=== PATIENT | female | born 1985 | race Caucasian/White ===

== ENCOUNTER 2022-01-22 17:26 | Emergency (ER) | payer OTHER, SELFPAY ==
[2022-01-22 17:28] VITALS: BP 106/4; PULSE 122; RESP 25; TEMP 37.9; O2SAT 97; BMI 39.3
[2022-01-22] MEDS: Ibuprofen 600 MG Tablet PO (17:48)
[2022-01-22] MEDS: Ondansetron ODT 4 MG Tablet 8 MG PO (17:49)
--- NOTE | 2022-01-22 17:54 | EX.ED.DYSGE1 ---
HPI History of Present Illness Chief Complaint: Fever Informant: patient Narrative Narrative: 2-day history fevers headache. Nausea and vomiting x5 today. No hematemesis. Very slight cough. No urinary symptoms. No current diarrhea. No loss of taste or smell. Denies any sick contacts. Denies any allergies. Denies myalgias. Hysterectomy in the past. Tylenol taken at 3 PM. PFSH PFSH Home Medications hydrocodone-acetaminophen 1 - 2 tab PO Q4H PRN PRN #12 tablet 11/27/16 [Rx Last Taken Unknown] naproxen 500 mg PO BID PRN #20 tab 11/27/16 [Rx Last Taken Unknown] ondansetron 4 mg PO Q6H PRN #10 tab 01/22/22 [Rx Last Taken Unknown] Allergy/AdvReac Type Severity Reaction Status Date / Time ciprofloxacin [From Cipro] Allergy Unknown Verified 01/22/22 17:28 Surgical History (Updated 01/22/22 @ 18:03 by Caron Carreno RN) Hx of appendectomy Hx of hysterectomy Social History Smoking Status: Never smoker ROS ROS ED Constitutional Constitutional ED: Reports fever(s); Denies chills or sweats Eyes Eyes: Denies change in vision ENT ENT ED: Denies dysphagia or sore throat Cardiovascular Cardiovascular: Denies chest pain, leg edema, palpitations or racing heartbeat Respiratory/Chest Respiratory/Chest: Denies cough, dyspnea or dyspnea on exertion Gastrointestinal Gastrointestinal: Reports nausea and vomiting; Denies abdominal pain or diarrhea Genitourinary Genitourinary ED: Denies dysuria, hematuria or urinary frequency Musculoskeletal Musculoskeletal: Denies back pain, extremity pain or neck pain Integumentary Denies rash or wounds Neurologic Neurologic: Reports headache(s); Denies paresthesias or weakness EXAM Physical Exam Const Vital Signs: 01/22/22 17:28 01/22/22 18:02 01/22/22 19:38 Temperature 100.2 F H 99.0 F Temperature Source Temporal Pulse Rate 122 H 79 Respiratory Rate 25 H 16 Respiratory Effort Normal Non-Labored Respiratory Pattern Normal Blood Pressure 106/4 L 103/70 Blood Pressure Mean 38 Pulse Ox 97 97 Oxygen Delivery Method Room Air Positive well nourished and well developed General Appearance ED: well developed and NAD HEENT Reports moist mucous membranes normocephalic and atraumatic Eyes PERRL, EOMs intact bilaterally and conjunctivae normal General Eye ED: Yes normal appearance of both eyes Neck no lymphadenopathy and supple Neck Narrative: No meningismus General: Negative for tenderness Chest Wall Chest: Negative for tenderness Resp normal respiratory effort and normal air movement Effort and Inspection: symmetric chest movement; Negative for respiratory distress Cardio regular rate, regular rhythm and no murmurs Rate: tachycardic Peripheral Pulses: pulses 2+ throughout GI normal to inspection, nondistended, normoactive bowel sounds and non-tender Palpation: Negative for guarding or rebound tenderness present Back/Spine no CVA tenderness and no thoracic nor lumbar tenderness Extremity normal to inspection General Extremety ED: Negative for edema or tenderness General Extremity: Negative for edema Neuro oriented x3 and no sensory deficits noted Sensorium / Orientation: awake and alert Skin no rashes or lesions noted and no wounds MDM MDM MDM Narrative Medical decision making narrative: Patient nontoxic tachycardic on arrival elevated temperature of 100.2. No meningismus findings. Ibuprofen and Zofran was given. Monitor improvement of symptoms tolerating oral fluids. Temperature and heart rate improved. No cough or dyspnea or concerns for pneumonia or PE. Flu and COVID are negative. Discussed viral syndrome. Follow-up give as an outpatient. Return precautions. Discharge Plan Triage Chief Complaint: Fever ED Provider: Juan Flower Dx/Rx/DC Orders Clinical Impression: Fever, Acute viral syndrome, Nausea & vomiting, Headache Instructions: Self-Care for Headaches, ED Fever Control (Adult), ED Viral Syndrome (Adult), ED Vomiting (Adult) Prescriptions: New ondansetron 4 mg tablet,disintegrating 4 mg PO Q6H PRN (Reason: nausea and vomiting) Qty: 10 RF: 0 No Action hydrocodone-acetaminophen 1 TABLET tablet 1 - 2 tab PO Q4H PRN PRN (Reason: Pain) Qty: 12 RF: 0 naproxen 500 MG tablet 500 mg PO BID PRN Qty: 20 RF: 0 Primary Care Provider: Care Physician,No Primary Referrals: Morena Batista [NON-STAFF] - 3-5 Days if not improving Care Physician,No Primary [Primary Care Provider] - Activity Restrictions/Additional Instructions: COVID and flu negative. Continue oral fluids. Follow-up as an outpatient. Return if any worsening symptoms. Disposition Disposition: Home, Self Care Discharge Date/Time: 01/22/22 19:41
[2022-01-22 19:38] VITALS: BP 103/70; PULSE 79; RESP 16; TEMP 37.2; O2SAT 97
== END 2022-01-22 19:41 | disposition home or self-care (01) ==
PROVIDERS: Emergency Provider Emergency Medicine; Visit Provider Emergency Medicine
DX: B34.9 Viral infection, unspecified (principal); R11.2 Nausea with vomiting, unspecified; R50.9 Fever, unspecified; R51.9 Headache, unspecified
CPT/HCPCS: 87428; 99283

== ENCOUNTER 2023-12-17 19:30 | Inpatient (IN) | payer OTHER, SELFPAY ==
[2023-12-17 19:31] VITALS: BP 138/74; PULSE 103; RESP 20; TEMP 36.6; O2SAT 96; BMI 38.7
--- NOTE | 2023-12-17 19:47 | EX.ED.DYSGE1 ---
HPI <KAVITA Monreal - Last Filed: 12/17/23 22:12> History of Present Illness Chief Complaint: Chest Other Narrative Narrative: 38-year-old female developed pain in her right flank and side over the last few days. It worsened to half an hour ago while she was bowling but it seemed worse with movement so she stopped the activity. The pain today is more severe. She has no associated fever, chills, nausea, vomiting, chest pain, shortness of breath, or bladder or bowel changes. No history of kidney stones. She has had an appendectomy and hysterectomy. She does not smoke or drink alcohol. She is not currently on any medications. She recently had her enlarged thyroid removed and is pending biopsy. PFSH <KAVITA Monreal - Last Filed: 12/17/23 22:12> PFS Medical History Obesity Thyroid disease Home Medications hydrocodone-acetaminophen 5-325mg 5mg-325mg 1 tab PO Q4H PRN PRN pain 12/17/23 [History Last Taken Unknown] sulfamethoxazole 800 mg-trimethoprim 160 mg tablet (Bactrim DS) 1 tab PO BID 7 days #14 tabs 12/20/23 [Rx Last Taken Unknown] Allergy/AdvReac Type Severity Reaction Status Date / Time ciprofloxacin [From Cipro] Allergy Intermediate Hives Verified 12/20/23 11:44 Family History (Updated 12/17/23 @ 22:[address] Sandi Norman MD) Mother No problems noted. Father No problems noted. Surgical History H/O thyroidectomy History of surgery on lower extremity Hx of appendectomy Hx of hysterectomy Previous section Social History (Updated 12/17/23 @ 22:[address] Sandi Norman MD) household members: children Smoking Status: Never smoker alcohol intake: never substance use type: does not use ROS <KAVITA Monreal - Last Filed: 12/17/23 22:12> ROS ED ROS Narrative Constitutional: Negative for fever, chills, malaise. CVS: Negative for chest pain, syncope. Respiratory: Negative for shortness of breath, cough. GI: Negative for abdominal pain, nausea, vomiting, diarrhea, constipation, melena, hematochezia. : Negative for dysuria, hematuria or frequency. EXAM <KAVITA Monreal - Last Filed: 12/17/23 22:12> Physical Exam Narrative Exam Narrative: CONST: Patient sitting in no acute distress. EYES: Normal inspection. NECK: Normal inspection. RESP: No respiratory distress, CTAB. CVS: Regular rate and rhythm, no murmur, no gallop. ABD: Soft with RUQ tenderness, no guarding or rebound, nondistended, no hepatosplenomegaly. Back: Normal inspection, right CVA tenderness. SKIN: Color normal, no rash, warm, dry, intact. EXTREMITIES: Normal appearance, no pedal edema. NEURO: Alert and answering questions appropriately. PSYCH: Normal affect. Const Vital Signs: 12/17/23 19:31 12/17/23 19:56 12/17/23 22:00 Temperature 98 F 96.9 F L Temperature Source Temporal Temporal Pulse Rate 103 H 85 Respiratory Rate 20 H 16 Respiratory Effort Normal Non-Labored Blood Pressure 138/74 H 99/57 L Blood Pressure Mean 95 71 Pulse Ox 96 93 Oxygen Delivery Method Room Air Room Air 12/17/23 22:03 12/17/23 22:04 Temperature 97.9 F 97.9 F Temperature Source Oral Pulse Rate 89 90 Respiratory Rate 16 19 H Respiratory Effort Blood Pressure 99/57 L 99/57 L Blood Pressure Mean 71 71 Pulse Ox 93 93 Oxygen Delivery Method Room Air <Dr. Dick Millard DO - Last Filed: 12/22/23 10:12> Physical Exam Const Vital Signs: 12/17/23 19:31 12/17/23 19:56 12/17/23 22:00 Temperature 98 F 96.9 F L Temperature Source Temporal Temporal Pulse Rate 103 H 85 Respiratory Rate 20 H 16 Respiratory Effort Normal Non-Labored Blood Pressure 138/74 H 99/57 L Blood Pressure Mean 95 71 Pulse Ox 96 93 Oxygen Delivery Method Room Air Room Air 12/17/23 22:03 12/17/23 22:04 Temperature 97.9 F 97.9 F Temperature Source Oral Pulse Rate 89 90 Respiratory Rate 16 19 H Respiratory Effort Blood Pressure 99/57 L 99/57 L Blood Pressure Mean 71 71 Pulse Ox 93 93 Oxygen Delivery Method Room Air MDM <KAVITA Monreal - Last Filed: 12/17/23 22:12> MDM MDM Narrative Medical decision making narrative: Differential includes kidney stone or pyelonephritis, gallbladder etiology, or musculoskeletal pain. Consults: Hospitalist, urology Patient has right flank and upper abdominal pain present over the last few days but worsened today. She appears well and nontoxic. Heart rate is 103 with otherwise normal vital signs. She has a normal cardiopulmonary exam. She has reproducible pain in the right flank and RUQ with no peritoneal signs. Labs show normal white count of 10.2 and mild anemia at 10.3. She has normal electrolytes and renal function. UA is positive for UTI. Based on this I ordered a CT scan of the abdomen/pelvis which shows a 9 cm multiloculated renal parenchymal mass with surrounding hazy fat stranding and streaky fluid. This may be renal abscess versus malignant process. I discussed with Dr. Haile who reviewed the images. He notes there is a large stone in the renal pelvis which he believes is obstructive causing hydronephrosis/pyelonephritis. He agreed with IV Rocephin and recommended admission and n.p.o. for stent placement this weekend. Case was discussed with the hospitalist for admission. Lab Data Attestation: I reviewed the patient's lab results. Labs: Laboratory Results - last 24 hr 12/17/23 12/17/23 20:00 20:20 WBC 10.2 RBC 3.77 L Hgb 10.3 L Hct 33.2 L MCV 88.1 MCH 27.3 MCHC 31.0 L RDW Std Deviation 46.1 H RDW Coeff of Paige 14.4 Plt Count 495 H MPV 9.2 Immature Gran % (Auto) 0.400 Neut % (Auto) 73.6 H Lymph % (Auto) 16.5 L [place] % (Auto) 7.8 Eos % (Auto) 1.2 Baso % (Auto) 0.5 Absolute Neuts (auto) 7.5 Absolute Lymphs (auto) 1.69 Nucleated RBC % 0 Sodium 137 Potassium 3.9 Chloride 108 H Carbon Dioxide 26.0 Anion Gap 3 L BUN 12 Creatinine 0.90 Estim Creat Clear Calc 100.54 Est GFR (MDRD) Af Amer 91 Est GFR (MDRD) Non-Af 75 BUN/Creatinine Ratio 13.3 Glucose 119 H Calcium 8.6 Total Bilirubin 0.30 AST 43 H ALT 50 Alkaline Phosphatase 86 Total Protein 7.2 Albumin 2.8 L Globulin 4.4 H Albumin/Globulin Ratio 0.6 L Lipase 39 Urine Color Yellow Urine Clarity Clear Urine pH 7.0 Ur Specific [place] 1.015 Urine Protein 30 H Urine Glucose (UA) Normal Urine Ketones 5 H Urine Occult Blood 50 H Urine Nitrite Positive H Urine Bilirubin Negative Urine Urobilinogen 8 H Ur Leukocyte Esterase 100 H Urine RBC 0-5 SEEN Urine WBC 50-100 SEEN Ur Squamous Epith Cells 0-5 SEEN Urine Bacteria 2+ Urine Mucus 0 SEEN Radiography Diagnostic Testing: Clinical Impression(s) from Imaging Studies Abdomen/Pelvis CT 12/17/23 20:47 IMPRESSION: Large 9 cm hypoattenuating right multiloculated renal parenchymal mass with surrounding hazy fat stranding and streaky fluid, which may represent renal abscess versus possible malignant process. Fatty liver. Electronically Signed: Jose Funk MD at 21:45 EDT , <Dr. Dick Millard, DO - Last Filed: 12/22/23 10:12> [facility] MDM Narrative Medical decision making narrative: Differential includes kidney stone or pyelonephritis, gallbladder etiology, or musculoskeletal pain. Consults: Hospitalist, urology Patient has right flank and upper abdominal pain present over the last few days but worsened today. She appears well and nontoxic. Heart rate is 103 with otherwise normal vital signs. She has a normal cardiopulmonary exam. She has reproducible pain in the right flank and RUQ with no peritoneal signs. Labs show normal white count of 10.2 and mild anemia at 10.3. She has normal electrolytes and renal function. UA is positive for UTI. Based on this I ordered a CT scan of the abdomen/pelvis which shows a 9 cm multiloculated renal parenchymal mass with surrounding hazy fat stranding and streaky fluid. This may be renal abscess versus malignant process. I discussed with Dr. Haile who reviewed the images. He notes there is a large stone in the renal pelvis which he believes is obstructive causing hydronephrosis/pyelonephritis. He agreed with IV Rocephin and recommended admission and n.p.o. for stent placement this weekend. Case was discussed with the hospitalist for admission. ED attending note: I evaluated the patient in conjunction with the RASHARD. I agree with his/her statements and above findings. I have personally performed a face to face assessment of the patient and have reviewed the RASHARD Note. I performed a substantive portion of the visit including all aspects of the following. I personally saw the patient performed chart review, physical exam, reviewed labs, imaging (if obtained), and formulated a treatment and management plan. This note was generated with [employer] dictation software. It may contain incorrect words, spelling, and punctuation that were not noted in review of the chart prior to signing. Lab Data Labs: Laboratory Results - last 24 hr 12/17/23 12/17/23 20:00 20:20 WBC 10.2 RBC 3.77 L Hgb 10.3 L Hct 33.2 L MCV 88.1 MCH 27.3 MCHC 31.0 L RDW Std Deviation 46.1 H RDW Coeff of Paige 14.4 Plt Count 495 H MPV 9.2 Immature Gran % (Auto) 0.400 Neut % (Auto) 73.6 H Lymph % (Auto) 16.5 L [place] % (Auto) 7.8 Eos % (Auto) 1.2 Baso % (Auto) 0.5 Absolute Neuts (auto) 7.5 Absolute Lymphs (auto) 1.69 Nucleated RBC % 0 Sodium 137 Potassium 3.9 Chloride 108 H Carbon Dioxide 26.0 Anion Gap 3 L BUN 12 Creatinine 0.90 Estim Creat Clear Calc 100.54 Est GFR (MDRD) Af Amer 91 Est GFR (MDRD) Non-Af 75 BUN/Creatinine Ratio 13.3 Glucose 119 H Calcium 8.6 Total Bilirubin 0.30 AST 43 H ALT 50 Alkaline Phosphatase 86 Total Protein 7.2 Albumin 2.8 L Globulin 4.4 H Albumin/Globulin Ratio 0.6 L Lipase 39 Urine Color Yellow Urine Clarity Clear Urine pH 7.0 Ur Specific [place] 1.015 Urine Protein 30 H Urine Glucose (UA) Normal Urine Ketones 5 H Urine Occult Blood 50 H Urine Nitrite Positive H Urine Bilirubin Negative Urine Urobilinogen 8 H Ur Leukocyte Esterase 100 H Urine RBC 0-5 SEEN Urine WBC 50-100 SEEN Ur Squamous Epith Cells 0-5 SEEN Urine Bacteria 2+ Urine Mucus 0 SEEN Radiography Diagnostic Testing: Clinical Impression(s) from Imaging Studies Abdomen/Pelvis CT 12/17/23 20:47 IMPRESSION: Large 9 cm hypoattenuating right multiloculated renal parenchymal mass with surrounding hazy fat stranding and streaky fluid, which may represent renal abscess versus possible malignant process. Fatty liver. Electronically Signed: Jose Funk MD at 21:45 EDT , Discharge Plan Dx/Rx/DC Orders Clinical Impression: Pyelonephritis of right kidney Disposition Disposition: Acute Care Hospital [facility] Discharge Date/Time: 12/17/23 22:46
[2023-12-17 20:06] LABS: Mucous, Urine 0 SEEN /hpf (<or=2+)
[2023-12-17 20:16] LABS: Color, Urine Yellow (Yellow); Glucose, Dipstick Normal (Normal); Ketone-Dipstick 5 mg/dl (Negative); Leukocyte Esterase-Dipstick 100 /ul (Negative); Nitrite-Dipstick Positive (Negative); Occult Blood-Urine 50 /ul (Negative); Protein-Dipstick 30 mg/dl (Negative); Specific Gravity, Urine 1.015 (1.002-1.030); Urine Bilirubin Dipstick Negative (Negative); Urine Clarity Clear (Clear); Urine Urobilinogen 8 mg/dl (Normal)
[2023-12-17] MEDS: Ketorolac 15 MG/ML Vial IV (20:26)
[2023-12-17 20:34] LABS: Absolute Lymphocyte Count 1.69 X10^3/uL (0.83-4.51); Absolute Neutrophil Count 7.5 X10^3/uL (2.0-7.7); Basophil# 0.05 X10^3/uL; Basophil% 0.5 % (0-1); Eosinophil# 0.12 X10^3/uL; Eosinophils% 1.2 % (0-5); Hematocrit 33.2 % (37-47); Hemoglobin 10.3 g/dL (12.0-15.0); Lymphocyte # 1.69 X10^3/ul (0.83-4.51); Lymphocyte % 16.5 % (19-41); Mean Corpuscular Hgb 27.3 pg (27.0-32.0); Mean Corpuscular Volume 88.1 fL (81-99); Mean Platelet Vol. 9.2 fl (6.2-12.0); Monocyte% 7.8 % (0-10); NRBC Flagged by Analyzer 0 % (0-5); Neutrophil # 7.53 X10^3/uL (2.7-7.7); Neutrophil % 73.6 % (47-70); Platelet Count 495 K/mm3 (150-450); RBC Distribution Width CV 14.4 % (11.6-14.6); RBC Distribution Width SD 46.1 fl (35.1-43.9); Red Blood Count 3.77 M/mm3 (4.2-5.4); White Blood Count 10.2 K/mm3 (4.4-11.0)
[2023-12-17 20:43] LABS: Squamous Epithelial Cells - UA 0-5 SEEN /hpf (5-10); White Blood Cells 50-100 SEEN /hpf (0-5)
[2023-12-17 20:44] LABS: Bacteria 2+ /hpf (None Seen); Red Blood Cells-Urine 0-5 SEEN /hpf (0-5)
--- NOTE | 2023-12-17 20:47 | CT_ITS ---
INDICATION: RIGHT FLANK PAIN. COMPARISON: None. A radiation dose optimization technique was used for this scan. RADIATION DOSAGE (If Supplied By Facility): CTDIvol/DLP = ( 20.20 ) / ( 1125.72 ) mGy/mGycm FINDINGS: Noncontrast serial CT axial images through the abdomen and pelvis with coronal and sagittal reformatted series. PANCREAS: No peripancreatic fat stranding. BOWEL/MESENTERY: No dilated bowel loops. No significant free fluid. No free air. APPENDIX: Appendix is not definitely identified, however, there are no significant right lower quadrant inflammatory fat changes or focal fluid collection to suggest acute appendicitis. UTERUS/ADNEXA: Bilateral adnexal surgical clips. GALLBLADDER: No pericholecystic fat stranding. LIVER/STOMACH: Fatty liver. URINARY COLLECTING SYSTEM/ KIDNEYS: There is small right-sided nephrolith in place, however, no significant hydroureteronephrosis is present. No obstructing ureteral calculus. There is a large hypoattenuating right interpolar multiloculated 9 cm renal parenchymal mass with surrounding hazy fat stranding and streaky fluid. LUNG BASES: Thin streaky bibasilar atelectasis versus scarring.. BONES: Unremarkable for age. CT/Abdomen/Pelvis without Cont IMPRESSION: Large 9 cm hypoattenuating right multiloculated renal parenchymal mass with surrounding hazy fat stranding and streaky fluid, which may represent renal abscess versus possible malignant process. Fatty liver. Electronically Signed: Jose Funk MD at 21:45 EDT ,
[2023-12-17] MEDS: Morphine 4 MG/ML Syringe IV (20:53)
[2023-12-17] MEDS: Ondansetron 4 MG/2 ML Vial IV (20:53)
[2023-12-17 20:55] LABS: ALB/GLOB Ratio 0.6 RATIO (0.9-2.4); AST(SGOT) 43 U/L (15-37); Alanine Aminotransfer ALT/SGPT 50 U/L (13-56); Albumin, Serum 2.8 g/dL (3.2-5.0); Alkaline Phosphatase 86 U/L (45-117); Anion Gap 3 (5-15); BUN 12 mg/dL (7-18); BUN/Creat Ratio 13.3 RATIO (10-20); Calcium,Total 8.6 mg/dL (8.5-10.1); Chloride 108 mmol/L (98-107); EST Glomerular Filtration Rate 75 mL/min (>60); Est Glom Filt Rate - Afr Amer 91 mL/min (>60); Estimated Creatinine Clearance 100.54 ml/min; Globulin 4.4 g/dL (2.2-4.2); Glucose 119 mg/dL (74-106); Lipase 39 U/L (13-75); Potassium 3.9 mmol/L (3.5-5.1); Protein, Total 7.2 g/dL (6.4-8.2); Sodium Level 137 mmol/L (136-145)
[2023-12-17] MEDS: Ceftriaxone 1 GM/50 ML BAG IV (21:26)
[2023-12-17 22:00] VITALS: BP 99/57; PULSE 85; RESP 16; TEMP 36.1; O2SAT 93
[2023-12-17 22:03] VITALS: BP 99/57; PULSE 89; RESP 16; TEMP 36.6; O2SAT 93
[2023-12-17 22:04] VITALS: BP 99/57; PULSE 90; RESP 19; TEMP 36.6; O2SAT 93
--- NOTE | 2023-12-17 22:06 | CON.PCM.UR_ITS ---
HPI Consult Data Date of Consult: 12/17/23 HPI Narrative Reason for Consultation: stone HPI Narrative: FRANNY REID, is a 38 F who presents e right flank pain ct scan shows severe hydro and a stone in the renal pekvis causing severe hydro likly infrcted kidney, pt eill e admitted npo at midnight and eill place stent in am. [facility] Medical History (Updated 12/17/23 @ 22:[address] Sandi Norman MD) Obesity Thyroid disease Allergy/AdvReac Type Severity Reaction Status Date / Time ciprofloxacin [From Cipro] Allergy Unknown Verified 12/17/23 19:32 Surgical History (Updated 12/17/23 @ 22:[address] Sandi Norman MD) H/O thyroidectomy History of surgery on lower extremity Hx of appendectomy Hx of hysterectomy Previous section Social History (Updated 12/17/23 @ 22:[address] Sandi Norman MD) household members: none Smoking Status: Never smoker alcohol intake: never substance use type: does not use Lab / Micro Data 12/17/23 20:20 12/17/23 20:20 Labs: Laboratory Results - last 24 hr 12/17/23 20:00: Urine Color Yellow, Urine Clarity Clear, Urine pH 7.0, Ur Specific [place] 1.015, Urine Protein 30 H, Urine Glucose (UA) Normal, Urine Ketones 5 H, Urine Occult Blood 50 H, Urine Nitrite Positive H, Urine Bilirubin Negative, Urine Urobilinogen 8 H, Ur Leukocyte Esterase 100 H, Urine RBC 0-5 SEEN, Urine WBC 50-100 SEEN, Ur Squamous Epith Cells 0-5 SEEN, Urine Bacteria 2+, Urine Mucus 0 SEEN 12/17/23 20:20: WBC 10.2, RBC 3.77 L, Hgb 10.3 L, Hct 33.2 L, MCV 88.1, MCH 27.3, MCHC 31.0 L, RDW Std Deviation 46.1 H, RDW Coeff of Paige 14.4, Plt Count 495 H, MPV 9.2, Immature Gran % (Auto) 0.400, Neut % (Auto) 73.6 H, Lymph % (Auto) 16.5 L, [place] % (Auto) 7.8, Eos % (Auto) 1.2, Baso % (Auto) 0.5, Absolute Neuts (auto) 7.5, Absolute Lymphs (auto) 1.69, Nucleated RBC % 0, Sodium 137, Potassium 3.9, Chloride 108 H, Carbon Dioxide 26.0, Anion Gap 3 L, BUN 12, Creatinine 0.90, Estim Creat Clear Calc 100.54, Est GFR (MDRD) Af Amer 91, Est GFR (MDRD) Non-Af 75, BUN/Creatinine Ratio 13.3, Glucose 119 H, Calcium 8.6, Total Bilirubin 0.30, AST 43 H, ALT 50, Alkaline Phosphatase 86, Total Protein 7.2, Albumin 2.8 L, Globulin 4.4 H, Albumin/Globulin Ratio 0.6 L, Lipase 39 Imaging Radiology Impression Abdomen/Pelvis CT 12/17/23 20:47 IMPRESSION: Large 9 cm hypoattenuating right multiloculated renal parenchymal mass with surrounding hazy fat stranding and streaky fluid, which may represent renal abscess versus possible malignant process. Fatty liver. Electronically Signed: Jose Funk MD at 21:45 EDT ,
--- NOTE | 2023-12-17 22:12 | HP.PCM.HOS_ITS ---
HPI - General General Date of Admission: 12/17/23 Date of Service: 12/17/23 Chief Complaint: Right flank pain. HPI Narrative The patient is a 38 y/o F w/ PMHx: Obesity, recent Thyroid Bx for enlarged thyroid awaiting result otherwise healthy who presents to the [facility] ED on 12/17/23 with history of worsening right flank discomfort over the last several days however approximately half an hour prior to ED arrival while attempting to be active specifically [place] had worsening discomfort reporting it now is severe with no associated fever, chills, nausea, emesis, abdominal pain or dysuria/frequency/urinary type symptoms but given ongoing prompted ED evaluation. She reports the pain is dull aching, throbbing and stabbing rating it currently 9 out of 10 in severity. She denies ever having anything like this occur before. Workup in the ED included T98, heart rate 103, BP 130/74, respiratory rate 20, 96% on room air, CBC with WBC 10.2, hemoglobin 10.3, platelet 495 without marked shift, CMP with chloride 108, glucose 119, AST 43 otherwise hepatic profile not marked appearing, lipase 39, urinalysis with specific remedy 1.015, ketone 5, occult blood 50, positive nitrite, leukocyte Estrace 100, urine WBCs 50-100 with 2+ urine bacteria, urine culture pending per ED, CT abdomen and pelvis with large 9 cm hypoattenuating right multiloculated renal parenchymal mass with surrounding hazy fat stranding and streaky fluid possibly mechanical service representative of a renal abscess versus possibly malignant process. ED discussed case with urology who felt that the findings were secondary to a large stone in the renal pelvis concerning for obstructive process causing hydronephrosis and also concern that certainly it was a purulent process with plan to stent placement and evaluation in a.m. in the ED patient administered Zofran 4 mg IV x 1, morphine 4 mg IV x 1, Toradol 50 mg IV x 1 and Rocephin 1 g IV x 1. [facility] Medical History Obesity Thyroid disease Home Medications hydrocodone-acetaminophen 5-325mg 5mg-325mg 1 tab PO Q4H PRN PRN pain 12/17/23 [History Last Taken Unknown] Allergy/AdvReac Type Severity Reaction Status Date / Time ciprofloxacin [From Cipro] Allergy Unknown Verified 12/17/23 19:32 Family History (Updated 12/17/23 @ 22:[address] Sandi Norman MD) Mother No problems noted. Father No problems noted. Surgical History H/O thyroidectomy History of surgery on lower extremity Hx of appendectomy Hx of hysterectomy Previous section Social History (Updated 12/17/23 @ 22:[address] Sandi Norman MD) household members: children Smoking Status: Never smoker alcohol intake: never substance use type: does not use ROS ROS Narrative Admission Review of Systems: CONSTITUTIONAL: No weight loss, fever, chills, + weakness or fatigue. HEENT: Eyes: No visual loss, blurred vision, double vision or yellow sclerae. Ears, Nose, Throat: No hearing loss, sneezing, congestion, runny nose or sore throat. SKIN: No rash or itching, lesions, wounds. CARDIOVASCULAR: No chest pain, chest pressure or chest discomfort, palpitations, edema, orthopnea, syncopal events. RESPIRATORY: No shortness of breath, cough or sputum, wheezing, hemoptysis. GASTROINTESTINAL: No anorexia, nausea, vomiting or diarrhea, abdominal pain, melena, BRBPR. GENITOURINARY: + Right flank discomfort. No dysuria, frequency, urgency or retention. NEUROLOGICAL: No headache, dizziness, syncope, paralysis, ataxia, numbness or tingling in the extremities, focal weakness, change in bowel or bladder control, seizure. MUSCULOSKELETAL: + muscle, back pain, joint pain or stiffness. HEMATOLOGIC: + Anemia of unclear chronicity. No specific history of easy bleeding or bruising. LYMPHATICS: No enlarged nodes. No history of splenectomy. PSYCHIATRIC: No history of depression or anxiety. ENDOCRINOLOGIC: No reports of sweating, cold or heat intolerance. No polyuria or polydipsia. ALLERGIES: No history of asthma, hives, eczema or rhinitis. Vital Signs Vital Signs Vital Signs: 12/17/23 19:31 12/17/23 19:56 12/17/23 22:00 Temperature 98 F 96.9 F L Temperature Source Temporal Temporal Pulse Rate 103 H 85 Respiratory Rate 20 H 16 Respiratory Effort Normal Non-Labored Blood Pressure 138/74 H 99/57 L Blood Pressure Mean 95 71 Pulse Ox 96 93 Oxygen Delivery Method Room Air Room Air 04/05/24 22:03 12/17/23 22:04 Temperature 97.9 F 97.9 F Temperature Source Oral Pulse Rate 89 90 Respiratory Rate 16 19 H Respiratory Effort Blood Pressure 99/57 L 99/57 L Blood Pressure Mean 71 71 Pulse Ox 93 93 Oxygen Delivery Method Room Air Weight Weight: 225 lb 4.999 oz Body Mass Index (BMI) 38.7 Physical Exam Narrative Physical Examination: General: Awake, alert, oriented x 3 and cooperative, initially typing on her phone in the ED bed, fatigued, reporting pain 9 out of 10 but currently does not appear in any distress. Skin: Normal color, normal turgor, no icterus, no cyanosis. HEENT: AT/NC, EOMI, PERRLA, moderately dry MM, no carotid bruits or JVD noted. Lungs: CTA bilaterally, moderate effort, mild decrease BL bases, no rales, ronchi or wheezing. Heart: Mildly tachycardic with regular rhythm; no gallop, rub audible. Abdomen: Soft, abdomen is nontender to palpation, obese, no marked distention although habitus makes evaluation difficult, mildly hyperactive BS, no apprec iated HSM, + discomfort to palpation/tapping of the right flank. Extremities: No cyanosis, clubbing, or edema. Neurological: Patient awake, alert, oriented as noted, cognitive function intact; pupils equally reactive to light and accommodation, cranial nerves II- XII grossly normal, moving all 4 extremities, no focal deficits, strength moderately globally decreased secondary to acute presentation complaints Psychiatric: Affect appears fatigued, no acute evidence of depressive or anxiety feelings. Results Lab / Micro Data 12/17/23 20:20 12/17/23 20:20 Labs: Laboratory Results - last 24 hr 12/17/23 20:00: Urine Color Yellow, Urine Clarity Clear, Urine pH 7.0, Ur Specific [place] 1.015, Urine Protein 30 H, Urine Glucose (UA) Normal, Urine Ketones 5 H, Urine Occult Blood 50 H, Urine Nitrite Positive H, Urine Bilirubin Negative, Urine Urobilinogen 8 H, Ur Leukocyte Esterase 100 H, Urine RBC 0-5 SEEN, Urine WBC 50-100 SEEN, Ur Squamous Epith Cells 0-5 SEEN, Urine Bacteria 2+, Urine Mucus 0 SEEN 12/17/23 20:20: WBC 10.2, RBC 3.77 L, Hgb 10.3 L, Hct 33.2 L, MCV 88.1, MCH 27.3, MCHC 31.0 L, RDW Std Deviation 46.1 H, RDW Coeff of Paige 14.4, Plt Count 495 H, MPV 9.2, Immature Gran % (Auto) 0.400, Neut % (Auto) 73.6 H, Lymph % (Auto) 16.5 L, [place] % (Auto) 7.8, Eos % (Auto) 1.2, Baso % (Auto) 0.5, Absolute Neuts (auto) 7.5, Absolute Lymphs (auto) 1.69, Nucleated RBC % 0, Sodium 137, Potassium 3.9, Chloride 108 H, Carbon Dioxide 26.0, Anion Gap 3 L, BUN 12, Creatinine 0.90, Estim Creat Clear Calc 100.54, Est GFR (MDRD) Af Amer 91, Est GFR (MDRD) Non-Af 75, BUN/Creatinine Ratio 13.3, Glucose 119 H, Calcium 8.6, Total Bilirubin 0.30, AST 43 H, ALT 50, Alkaline Phosphatase 86, Total Protein 7.2, Albumin 2.8 L, Globulin 4.4 H, Albumin/Globulin Ratio 0.6 L, Lipase 39 Imaging Radiology Impression Abdomen/Pelvis CT 12/17/23 20:47 IMPRESSION: Large 9 cm hypoattenuating right multiloculated renal parenchymal mass with surrounding hazy fat stranding and streaky fluid, which may represent renal abscess versus possible malignant process. Fatty liver. Electronically Signed: Jose Funk MD at 21:45 EDT , Assessment & Plan Assessment/Plan (1) Pyelonephritis of right kidney: PLAN: Plan The patient is a 38 y/o F w/ PMHx: Obesity, recent Thyroid Bx for enlarged thyroid awaiting result otherwise healthy who presents to the [facility] ED on 12/17/23 with history of worsening right flank discomfort over the last several days however approximately half an hour prior to ED arrival while attempting to be active specifically bowling had worsening discomfort reporting it now is severe with no associated fever, chills, nausea, emesis, abdominal pain or d ysuria/frequency/urinary type symptoms but given ongoing prompted ED evaluation. #1. Complicated Acute Pyelonephritis with large 9 cm hypoattenuating right multiloculated renal parenchymal mass with surrounding hazy fat stranding and streaky fluid possibly abscess with concern for obstructive calculi in the renal pelvis and associated hydronephrosis per Urology assessment: Will admit to MS, UA upon ED evaluation remarkable, pending UCx, maintain n.p.o. status after midnight for operative intervention planned, continue urology consultation initiated per ED, continue IVFs, monitor I/Os, continue IV Rocephin per urology request w/ transition as able pending sensitivities and speciation. #2. Normocytic anemia, unclear chronicity: Admission hemoglobin 10.3, MCV 88.1, last noted labs previous to this in 2017 with hemoglobin 12.5 at that time, will continue to trend CBC to help further elucidate chronicity. #3. Obesity: Weight loss and lifestyle changes encouraged. #4. Enlarged thyroid: Status post recent thyroid right-sided resection/biopsy, awaiting results, encourage continued outpatient follow-up as previously arranged. #5. DVT prophylaxis: SCDs pending urology assessment in case of any type of intervention needs. Charges/Coding Visit Charges Inpatient E&M: 11222 Init Hosp L2
[2023-12-17 23:04] VITALS: BMI 37.4
[2023-12-17 23:08] VITALS: BP 106/59; PULSE 75; RESP 17; TEMP 36.6; O2SAT 95
[2023-12-17] MEDS: 0.9% Normal Saline (1000mL) 1,000 ML 100 ML IV (23:42)
[2023-12-17] MEDS: Morphine 2 MG/ML Syringe IV (23:48)
[2023-12-18] VITALS (9 sets, daily range): BP systolic 107–133; BP diastolic 54–88; PULSE 65–89; RESP 14–18; TEMP 35.9–37; O2SAT 94–100; BMI 37.5; BMI 37.4
[2023-12-18 05:51] LABS: Absolute Lymphocyte Count 1.33 X10^3/uL (0.83-4.51); Absolute Neutrophil Count 4.8 X10^3/uL (2.0-7.7); Basophil# 0.04 X10^3/uL; Basophil% 0.6 % (0-1); Eosinophil# 0.14 X10^3/uL; Hemoglobin 10.4 g/dL (12.0-15.0); Lymphocyte # 1.33 X10^3/ul (0.83-4.51); Lymphocyte % 19.2 % (19-41); Mean Corp Hgb Conc 31.5 g/dL (32-36); Mean Corpuscular Hgb 28.6 pg (27.0-32.0); Mean Corpuscular Volume 90.7 fL (81-99); Mean Platelet Vol. 9.2 fl (6.2-12.0); Monocyte% 8.6 % (0-10); NRBC Flagged by Analyzer 0 % (0-5); Neutrophil # 4.81 X10^3/uL (2.7-7.7); Neutrophil % 69.3 % (47-70); Platelet Count 468 K/mm3 (150-450); RBC Distribution Width CV 14.4 % (11.6-14.6); RBC Distribution Width SD 48.2 fl (35.1-43.9); Red Blood Count 3.64 M/mm3 (4.2-5.4); White Blood Count 6.9 K/mm3 (4.4-11.0)
[2023-12-18 06:20] LABS: ALB/GLOB Ratio 0.6 RATIO (0.9-2.4); AST(SGOT) 25 U/L (15-37); Alanine Aminotransfer ALT/SGPT 44 U/L (13-56); Albumin, Serum 2.5 g/dL (3.2-5.0); Alkaline Phosphatase 81 U/L (45-117); Anion Gap 4 (5-15); BUN 14 mg/dL (7-18); BUN/Creat Ratio 16.9 RATIO (10-20); Calcium,Total 8.4 mg/dL (8.5-10.1); Chloride 110 mmol/L (98-107); Creatinine, Serum 0.83 mg/dL (0.55-1.02); EST Glomerular Filtration Rate 83 mL/min (>60); Est Glom Filt Rate - Afr Amer 100 mL/min (>60); Globulin 4.3 g/dL (2.2-4.2); Glucose 116 mg/dL (74-106); Potassium 3.9 mmol/L (3.5-5.1); Protein, Total 6.8 g/dL (6.4-8.2); Sodium Level 140 mmol/L (136-145); Thyroid Stim Hormone (TSH) 3.19 uIU/mL (0.358-3.74)
[2023-12-18] MEDS: Lidocaine Jelly 2% 20 ML Syringe (URO-JET) 1 APPLIC (08:15)
--- NOTE | 2023-12-18 08:22 | PCM.OPRPT ---
Report of Operation Date of Procedure: 12/18/23 Pre-Operative Diagnosis: Right renal stone obstructive Post-Operative Diagnosis: Same Surgery/Procedure Performed:: Cystoscopy right retrograde pyelogram right stent placement Description of Surgical Findings:: Patient was admitted to the hospital with obstruction she looks like on CAT scan she has a small stone within the renal pelvis causing significant hydronephrosis so today working place a stent on the right side kidney look swollen and infected. She was taken back to the operative room at this with induction of anesthesia she was placed in dorsolithotomy position. The urethrovaginal area prepped and draped in usual sterile fashion went into the bladder with a 21 Turkmen rigid cystourethroscope the urine was fairly cloudy. I then cannulated the right ureteral orifice advanced a wire up into the kidney and coiled in the upper pole the kidney I then did put in a Pollick catheter after this injected the dye into the pyelogram and you could see that there was upper pole midpole lower pole the kidney evaluated but no severe hydro I can see in the CAT scan also could not really identify the location of the stone in the show the stone dropped into the ureter. At this point I then just advanced a wire in the upper pole and we placed a stent on the right side and then drained the bladder. She will be treated for an infection and we will set her up for outpatient ureteroscopy and laser at a later point I will have my office call her and get her set up for this. For now we will place a stent for the obstructing stone and treat for infection Surgeon: Med Haile Type of Anesthesia: MAC and Topical Anesth Drains: stent Admit VTE Documentation VTE Present on Admission: No VTE Mechan Device Prophylaxis: SCD's VTE Pharm Prophylaxis ordered?: No
--- NOTE | 2023-12-18 08:25 | DCINST_ITS ---
Discharge Instructions Diet Discharge Diet: No restrictions Activity Discharge Activity: Return to Normal Activity and May Not Drive (while taking narcotic pain medications.) Dressing / Incision Call your doctor if you observe: Fever of 101 or Higher Follow Up Care Please Follow Up With: Med Haile MD When: Call [phone] for an appointment Test Results: Test results from this visit will be discussed in further detail at your follow- up appointment, if applicable. Discharge Plan Admission Admit Date/Time: 12/17/23 22:13 Attending Provider: Crista Oswald Primary Care Provider: Care Physician,No Primary Consulting Providers: Med Haile; Sandi Norman Discharge Orders/Prescriptions Prescriptions: No Action hydrocodone-acetaminophen 5-325 mg tablet 1 tab PO Q4H PRN PRN (Reason: pain) Referrals / Follow Up: Care Physician,No Primary [Primary Care Provider] -
[2023-12-18] MEDS: Ceftriaxone 2 GM in 0.9% Normal Saline (50mL MB+) 50 ML IV (09:33)
[2023-12-18] MEDS: Famotidine 20 MG Tablet PO ×2 (09:34→21:47)
--- NOTE | 2023-12-18 10:16 | CASEMGMT ---
SCHUYLER DUFFY Assessment Face to Face with patient for initial transition planning/care coordination assessment. SCHUYLER DUFFY introduced self and role at [facility], pt voices understanding. Pt is A&Ox4 and is resting comfortably in bed and is calm. Care providers, pharmacy, and demographics verified. Admitting dx: Pyelonephritis PCP: None. PCP provider list given Specialists: Denies Preferred Pharmacy: Pt wishes to use [facility] during this stay Insurance: [employer] Prescription Benefit: Yes LNOK: Sammi Callaway (Mother) Living Arrangements: Pt lives with her daughter and 2 cousins in a single story home with 2 steps to enter ADLs/IADLs: Ind Transportation: Self, pt mother DME: Denies uses or needs HHC/SNF: Denies history or needs Pt?s goal: Home no needs Plan: 6-Click is 24. Pt had stent placed this morning. Pt denies home going needs and states that she feels safe DC home once medically ready. CM to follow for safe DC from [facility]. Elzbieta Guevara RN, CM
--- NOTE | 2023-12-18 10:36 | PN_ITS ---
Subjective Subjective Patient seen and examined. She was admitted with a complaint of right flank pain. She went in for cystoscopy with stent insertion today. Patient seen after procedure. Her mother was by her bedside. She complained of abdominal pain, mainly flank pain on her right side. She is still having dysuria. Review of systems otherwise negative. Objective Data Objective Data Vital Signs: Vital Signs Temp Pulse Resp BP Pulse Ox O2 Del Method 98.1 F 65 18 125/75 H 98 Room Air 12/18/23 09:29 12/18/23 09:29 12/18/23 09:29 12/18/23 09:29 12/18/23 09:29 12/18/23 09:29 Oxygen Delivery Method Room Air Weight: 225 lb 1.471 oz Body Mass Index (BMI) 37.4 Intake & Output: Intake and Output for Last 24 Hours 12/16/23 12/17/23 12/18/23 23:59 23:59 23:59 Intake Total 50 / 50 1030 / 1030 Output Total 250 / 250 Balance 50 / 50 780 / 780 Lab / Micro Data 12/18/23 05:20 12/18/23 05:20 Labs: Laboratory Results - last 24 hr 12/17/23 20:00: Urine Color Yellow, Urine Clarity Clear, Urine pH 7.0, Ur Specific [place] 1.015, Urine Protein 30 H, Urine Glucose (UA) Normal, Urine Ketones 5 H, Urine Occult Blood 50 H, Urine Nitrite Positive H, Urine Bilirubin Negative, Urine Urobilinogen 8 H, Ur Leukocyte Esterase 100 H, Urine RBC 0-5 SEEN, Urine WBC 50-100 SEEN, Ur Squamous Epith Cells 0-5 SEEN, Urine Bacteria 2+, Urine Mucus 0 SEEN 12/17/23 20:20: WBC 10.2, RBC 3.77 L, Hgb 10.3 L, Hct 33.2 L, MCV 88.1, MCH 27.3, MCHC 31.0 L, RDW Std Deviation 46.1 H, RDW Coeff of Paige 14.4, Plt Count 495 H, MPV 9.2, Immature Gran % (Auto) 0.400, Neut % (Auto) 73.6 H, Lymph % (Auto) 16.5 L, [place] % (Auto) 7.8, Eos % (Auto) 1.2, Baso % (Auto) 0.5, Absolute Neuts (auto) 7.5, Absolute Lymphs (auto) 1.69, Nucleated RBC % 0, Sodium 137, Potassium 3.9, Chloride 108 H, Carbon Dioxide 26.0, Anion Gap 3 L, BUN 12, Creatinine 0.90, Estim Creat Clear Calc 100.54, Est GFR (MDRD) Af Amer 91, Est GFR (MDRD) Non-Af 75, BUN/Creatinine Ratio 13.3, Glucose 119 H, Calcium 8.6, Total Bilirubin 0.30, AST 43 H, ALT 50, Alkaline Phosphatase 86, Total Protein 7.2, Albumin 2.8 L, Globulin 4.4 H, Albumin/Globulin Ratio 0.6 L, Lipase 39 12/18/23 05:20: WBC 6.9, RBC 3.64 L, Hgb 10.4 L, Hct 33.0 L, MCV 90.7, MCH 28.6, MCHC 31.5 L, RDW Std Deviation 48.2 H, RDW Coeff of Paige 14.4, Plt Count 468 H, MPV 9.2, Immature Gran % (Auto) 0.300, Neut % (Auto) 69.3, Lymph % (Auto) 19.2, [place] % (Auto) 8.6, Eos % (Auto) 2.0, Baso % (Auto) 0.6, Absolute Neuts (auto) 4.8, Absolute Lymphs (auto) 1.33, Nucleated RBC % 0, Sodium 140, Potassium 3.9, Chloride 110 H, Carbon Dioxide 26.0, Anion Gap 4 L, BUN 14, Creatinine 0.83, Estim Creat Clear Calc 111.00, Est GFR (MDRD) Af Amer 100, Est GFR (MDRD) Non-Af 83, BUN/Creatinine Ratio 16.9, Glucose 116 H, Calcium 8.4 L, Total Bilirubin 0.40, AST 25, ALT 44, Alkaline Phosphatase 81, Total Protein 6.8, Albumin 2.5 L, Globulin 4.3 H, Albumin/Globulin Ratio 0.6 L, TSH 3.19 Radiography Diagnostic Testing: Radiology Impression Abdomen/Pelvis CT 12/17/23 20:47 IMPRESSION: Large 9 cm hypoattenuating right multiloculated renal parenchymal mass with surrounding hazy fat stranding and streaky fluid, which may represent renal abscess versus possible malignant process. Fatty liver. Electronically Signed: Jose Funk MD at 21:45 EDT , Physical Exam Const alert, oriented x3, no apparent distress and well nourished General Appearance: cooperative and well developed HEENT normocephalic, head/scalp atraumatic, moist oral mucous membranes and oropharynx normal Eyes PERRL and EOMs intact bilaterally Neck no lymphadenopathy, supple and no JVD Lymph Lymphatic: no lymphadenopathy noted and no lymphedema noted Resp normal respiratory effort, normal air movement and clear to auscultation bilaterally Cardio regular rate, regular rhythm, S1 normal heart sound, S2 normal heart sound and no murmurs GI normal to inspection, nondistended, normoactive bowel sounds, soft to palpation, non-tender and non-distended GI Narrative: right sided CVA tenderness Extremity normal capillary refill, no clubbing, cyanosis or edema and no calf tenderness General Extremity: no tenderness to palpation of joints or extremities Skin General Skin Exam: no breakdown Neuro CN's II-XII intact bilaterally, no focal motor deficits, no sensory deficits noted and deep tendon reflexes 2+ bilaterally Motor Exam: strength 5/5 throughout and general weakness Psych thought process normal, cooperative and affect normal Appearance: appropriate Assessment & Plan Assessment/Plan (1) Pyelonephritis of right kidney: PLAN: Plan #Right sided complicated pyelonephritis * S/p cystoscopy with right retrograde pyelogram with insertion of stent. Imaging showed a large 9 cm hypoattenuating multiloculated renal parenchymal mass with surrounding hazy fat stranding and streaky fluid possibly abscess with concern for obstructive calculi in the renal pelvis and the stent hydronephrosis. * On IV Rocephin * urine cultures and blood cultures pending * start pyridium for pain * By urology, to have outpatient ureteroscopy * on PO tylenol and IV toradol as well as IV morphine as needed and p.o. oxycodone * #Right obstructive hydronephrosis * Due to obstructing right kidney stone as above. * #Enlarged thyroid * s/p recent right sided thyroidectomy and biopsy. * results of biopsy pending. * #DVT prophylaxis: SCDs Charges/Coding Visit Charges Inpatient E&M: 07118 Subs Hosp L2
[2023-12-18] MEDS: 0.9% Saline Lock 10 ML Syringe IV ×2 (14:29→21:46)
[2023-12-18] MEDS: Phenazopyridine 95 MG Tablet PO ×2 (14:29→21:47)
[2023-12-18] MEDS: Ketorolac 15 MG/ML Vial IV (21:46)
[2023-12-19 05:32] VITALS: BMI 37.5
[2023-12-19] MEDS: Phenazopyridine 95 MG Tablet PO ×3 (06:27→20:58)
[2023-12-19] MEDS: Ketorolac 15 MG/ML Vial IV ×3 (06:28→20:58)
[2023-12-19] MEDS: 0.9% Saline Lock 10 ML Syringe IV ×4 (06:28→20:58)
[2023-12-19 06:31] VITALS: BP 106/60; PULSE 81; RESP 16; TEMP 36.8; O2SAT 97
[2023-12-19 07:22] LABS: Absolute Neutrophil Count 6.8 X10^3/uL (2.0-7.7); Basophil# 0.03 X10^3/uL; Basophil% 0.3 % (0-1); Eosinophil# 0.08 X10^3/uL; Eosinophils% 0.9 % (0-5); Hematocrit 33.1 % (37-47); Hemoglobin 10.3 g/dL (12.0-15.0); Lymphocyte % 13.7 % (19-41); Mean Corp Hgb Conc 31.1 g/dL (32-36); Mean Corpuscular Hgb 28.1 pg (27.0-32.0); Mean Corpuscular Volume 90.2 fL (81-99); Mean Platelet Vol. 9.2 fl (6.2-12.0); Monocyte# 0.61 X10^3/uL; Monocyte% 6.9 % (0-10); NRBC Flagged by Analyzer 0 % (0-5); Neutrophil # 6.83 X10^3/uL (2.7-7.7); Neutrophil % 77.7 % (47-70); Platelet Count 505 K/mm3 (150-450); RBC Distribution Width CV 14.5 % (11.6-14.6); RBC Distribution Width SD 47.6 fl (35.1-43.9); Red Blood Count 3.67 M/mm3 (4.2-5.4); White Blood Count 8.8 K/mm3 (4.4-11.0)
[2023-12-19 08:05] LABS: Anion Gap 4 (5-15); BUN 13 mg/dL (7-18); BUN/Creat Ratio 15.4 RATIO (10-20); Calcium,Total 8.8 mg/dL (8.5-10.1); Chloride 110 mmol/L (98-107); Creatinine, Serum 0.84 mg/dL (0.55-1.02); EST Glomerular Filtration Rate 81 mL/min (>60); Est Glom Filt Rate - Afr Amer 98 mL/min (>60); Glucose 110 mg/dL (74-106); Potassium 3.8 mmol/L (3.5-5.1); Sodium Level 140 mmol/L (136-145)
[2023-12-19 08:20] VITALS: O2SAT 97
--- NOTE | 2023-12-19 08:34 | PN_ITS ---
Subjective Subjective Patient seen and examined. She is feeling better. She says the pain is improved. She is still having dysuria. She denies any nausea or vomiting or fever or chills. Review of systems otherwise negative. Objective Data Objective Data Vital Signs: Vital Signs Temp Pulse Resp BP Pulse Ox O2 Del Method 98.3 F 81 16 106/60 97 Room Air 12/19/23 06:31 12/19/23 06:31 12/19/23 06:31 12/19/23 06:31 12/19/23 06:31 12/19/23 06:31 Oxygen Delivery Method Room Air Weight: 225 lb 8.526 oz Body Mass Index (BMI) 37.5 Intake & Output: Intake and Output for Last 24 Hours 12/17/23 12/18/23 12/19/23 23:59 23:59 23:59 Intake Total 50 / 50 1450 / 1450 800 / 800 Output Total 1350 / 1350 Balance 50 / 50 100 / 100 800 / 800 Lab / Micro Data 12/19/23 05:47 12/19/23 05:47 Labs: Laboratory Results - last 24 hr 12/19/23 05:47: WBC 8.8, RBC 3.67 L, Hgb 10.3 L, Hct 33.1 L, MCV 90.2, MCH 28.1, MCHC 31.1 L, RDW Std Deviation 47.6 H, RDW Coeff of Paige 14.5, Plt Count 505 H, MPV 9.2, Immature Gran % (Auto) 0.500, Neut % (Auto) 77.7 H, Lymph % (Auto) 13.7 L, [place] % (Auto) 6.9, Eos % (Auto) 0.9, Baso % (Auto) 0.3, Absolute Neuts (auto) 6.8, Absolute Lymphs (auto) 1.20, Nucleated RBC % 0, Sodium 140, Potassium 3.8, Chloride 110 H, Carbon Dioxide 26.0, Anion Gap 4 L, BUN 13, Creatinine 0.84, Estim Creat Clear Calc 109.80, Est GFR (MDRD) Af Amer 98, Est GFR (MDRD) Non-Af 81, BUN/Creatinine Ratio 15.4, Glucose 110 H, Calcium 8.8 Micro: Microbiology 12/17/23 20:00 Urine, Random Urine Culture - Preliminary Gram negative [place] Physical Exam Const alert, oriented x3, no apparent distress and well nourished General Appearance: cooperative and well developed HEENT normocephalic, head/scalp atraumatic, moist oral mucous membranes and oropharynx normal Eyes PERRL and EOMs intact bilaterally Neck no lymphadenopathy, supple and no JVD General: trachea midline Lymph Lymphatic: no lymphadenopathy noted and no lymphedema noted Resp normal respiratory effort, normal air movement and clear to auscultation bilaterally Cardio regular rate, regular rhythm, S1 normal heart sound, S2 normal heart sound and no murmurs GI normal to inspection, nondistended, normoactive bowel sounds, soft to palpation, non-tender and non-distended GI Narrative: right sided CVA tenderness has improved. Extremity normal capillary refill, no clubbing, cyanosis or edema and no calf tenderness General Extremity: no tenderness to palpation of joints or extremities Skin General Skin Exam: no breakdown Neuro CN's II-XII intact bilaterally, no focal motor deficits, no sensory deficits noted and deep tendon reflexes 2+ bilaterally Motor Exam: strength 5/5 throughout and general weakness Psych thought process normal, cooperative and affect normal Appearance: appropriate Assessment & Plan Assessment/Plan (1) Pyelonephritis of right kidney: PLAN: Plan #Right sided complicated pyelonephritis * S/p cystoscopy with right retrograde pyelogram with insertion of stent. Imaging showed a large 9 cm hypoattenuating multiloculated renal parenchymal mass with surrounding hazy fat stranding and streaky fluid possibly abscess with concern for obstructive calculi in the renal pelvis and the stent hydronephrosis. * On IV Rocephin * Urine cultures growing gram-negative rods. * on pyridium for pain * By urology, to have outpatient ureteroscopy * on PO tylenol and IV toradol as well as IV morphine as needed and p.o. oxycodone * #Right obstructive hydronephrosis * Due to obstructing right kidney stone as above. * #Enlarged thyroid * s/p recent right sided thyroidectomy and biopsy. * results of biopsy pending. * #DVT prophylaxis: SCDs Charges/Coding Visit Charges Inpatient E&M: 49774 Subs Hosp L2
[2023-12-19 08:52] VITALS: BP 130/81; PULSE 77; RESP 16; TEMP 36.5; O2SAT 98
[2023-12-19] MEDS: Famotidine 20 MG Tablet PO ×2 (08:54→20:58)
[2023-12-19] MEDS: Ceftriaxone 2 GM in 0.9% Normal Saline (50mL MB+) 50 ML IV (08:54)
[2023-12-19 14:19] VITALS: BP 125/86; PULSE 85; RESP 18; TEMP 36.7; O2SAT 98
[2023-12-19 20:55] VITALS: BP 140/89; PULSE 76; RESP 16; TEMP 36.8; O2SAT 97
[2023-12-20 05:20] VITALS: BMI 37.4
[2023-12-20] MEDS: Phenazopyridine 95 MG Tablet PO (05:53)
[2023-12-20 05:56] VITALS: BP 108/66; PULSE 73; RESP 16; TEMP 36.7; O2SAT 96
[2023-12-20 06:40] LABS: Absolute Lymphocyte Count 1.17 X10^3/uL (0.83-4.51); Absolute Neutrophil Count 5.8 X10^3/uL (2.0-7.7); Basophil# 0.03 X10^3/uL; Basophil% 0.4 % (0-1); Eosinophils% 1.3 % (0-5); Hematocrit 34.2 % (37-47); Hemoglobin 10.6 g/dL (12.0-15.0); Lymphocyte # 1.17 X10^3/ul (0.83-4.51); Lymphocyte % 15.3 % (19-41); Mean Corpuscular Hgb 27.7 pg (27.0-32.0); Mean Corpuscular Volume 89.3 fL (81-99); Mean Platelet Vol. 8.8 fl (6.2-12.0); Monocyte# 0.52 X10^3/uL; Monocyte% 6.8 % (0-10); NRBC Flagged by Analyzer 0 % (0-5); Neutrophil # 5.79 X10^3/uL (2.7-7.7); Neutrophil % 75.8 % (47-70); Platelet Count 484 K/mm3 (150-450); RBC Distribution Width CV 14.3 % (11.6-14.6); RBC Distribution Width SD 46.2 fl (35.1-43.9); Red Blood Count 3.83 M/mm3 (4.2-5.4); White Blood Count 7.6 K/mm3 (4.4-11.0)
[2023-12-20 06:50] VITALS: O2SAT 95
[2023-12-20 07:08] LABS: Anion Gap 5 (5-15); BUN 12 mg/dL (7-18); BUN/Creat Ratio 15.1 RATIO (10-20); Calcium,Total 8.9 mg/dL (8.5-10.1); Chloride 108 mmol/L (98-107); Creatinine, Serum 0.79 mg/dL (0.55-1.02); EST Glomerular Filtration Rate 87 mL/min (>60); Est Glom Filt Rate - Afr Amer 105 mL/min (>60); Glucose 117 mg/dL (74-106); Potassium 3.9 mmol/L (3.5-5.1); Sodium Level 139 mmol/L (136-145)
[2023-12-20 08:48] VITALS: BP 122/90; PULSE 78; RESP 16; TEMP 36.6; O2SAT 99
[2023-12-20] MEDS: 0.9% Normal Saline (250mL Bag) 250 ML 15 ML IV (09:35)
[2023-12-20] MEDS: Ceftriaxone 2 GM in 0.9% Normal Saline (50mL MB+) 50 ML IV (09:35)
[2023-12-20] MEDS: Famotidine 20 MG Tablet PO (09:36)
--- NOTE | 2023-12-20 11:36 | DCINST_ITS ---
Discharge Instructions Diet Discharge Diet: No restrictions Activity Discharge Activity: Return to Normal Activity Weight Bearing Status: Weight bearing as tolerated Dressing / Incision Call your doctor if you observe: Fever of 101 or Higher, Coldness, Increased Pain, Numbness or Tingling, Change in Color, Inability to urinate, Inability to have a bowel movement, Using more than 1 pad per hour, Shortness of breath, Dizziness, Fainting spells, Swelling in the ankles, Chest pain, Prolonged hiccupping, Increased palpitations (irregular heartbeat), Calf discomfort and Uncontrolled pain Follow Up Care Please Follow Up With: Med Haile MD When: IN 2 WEEKS Test Results: Test results from this visit will be discussed in further detail at your follow- up appointment, if applicable. Discharge Plan Admission Admit Date/Time: 12/17/23 22:13 Attending Provider: Haresh Farrell Primary Care Provider: Care Physician,No Primary Consulting Providers: Med Haile; Sandi Norman; Crista Oswald Discharge Orders/Prescriptions Prescriptions: New sulfamethoxazole-trimethoprim [Bactrim DS] 800-160 mg tablet 1 tab PO BID 7 Days Qty: 14 0RF Continued hydrocodone-acetaminophen 5-325 mg tablet 1 tab PO Q4H PRN PRN (Reason: pain) Referrals / Follow Up: Care Physician,No Primary [Primary Care Provider] - Med Haile MD [Med Staff - Active Staff] - Within 1 Week Disposition Disposition (needs filled in before D/C Order can be placed): Home, Self Care
--- NOTE | 2023-12-20 11:41 | DS.PCM_ITS ---
Providers Date of Admission: 12/17/23 Date of Discharge: 12/20/23 Primary Care Physician: No Primary Care Phys Consultations 12/17/23 22:55 Consult: Urology Routine Consulting Provider: Med Haile Reason for Consult: Pyelo, poss abscess, obstructive stone, hydro EMERGENT Consult: No MD Notified: Yes Date Notified: 12/17/23 Time Notified: 22:16 Method of Notification: ED Physician Initiated Reason For Visit: PYELONEPHRITIS, OBSTRUCTIVE CALCULI, HYDRONEPHROSI Diagnosis Discharge Diagnosis (1) Pyelonephritis of right kidney: Status: Acute Code(s): N12 - Tubulo-interstitial nephritis, not specified as acute or chronic Plan 38-year-old female admitted with right flank pain for last few days got worse about half an hour prior to ED arrival. She was admitted on the floor. Right sided complicated pyelonephritis * S/p cystoscopy with right retrograde pyelogram with insertion of stent. Imaging showed a large 9 cm hypoattenuating multiloculated renal parenchymal mass with surrounding hazy fat stranding and streaky fluid possibly abscess with concern for obstructive calculi in the renal pelvis and the stent hydron ephrosis. * On IV Rocephin * Urine cultures final culture report shows ESBL negative E. coli. It is sensitive to Cipro Bactrim DS and nitrofurantoin. Patient stated she is allergic to Cipro with breaking into hives and swelling. Patient had 3 days of IV ceftriaxone. * on pyridium for pain * By urology, to have outpatient ureteroscopy * on PO tylenol and IV toradol as well as IV morphine as needed and p.o. oxycodone For the 24: Patient is discharged on 7 more days of Bactrim DS, 1 tablet twice daily. #Right obstructive hydronephrosis * Due to obstructing right kidney stone as above. * #Enlarged thyroid * s/p recent right sided thyroidectomy and biopsy. * results of biopsy pending. * #DVT prophylaxis: SCDs * Discharge medication reconciliation done. Discharge follow-up instructions completed. Discharge process discussed with the patient and all questions were answered to patient's satisfaction. Follow with PCP in 1 to 2 weeks. Patient instructed to follow with Dr. Hurtado within 1 week. Total time spent, exact 35 minutes on discharge meds reconciliation, examination, coordination of care with nurses and ancillary staff, review of imaging and blood test and discussion with the patient on follow-up instructions. Medications at Discharge Home Medications hydrocodone-acetaminophen 5-325mg 5mg-325mg 1 tab PO Q4H PRN PRN pain 12/17/23 sulfamethoxazole 800 mg-trimethoprim 160 mg tablet (Bactrim DS) 1 tab PO BID 7 days #14 tabs 12/20/23 Physical Exam Narrative Seen and examined. Right flank pain has resolved. No fever. Patient is doing well and wants to go home. Physical exam General: Alert, Oriented x3, Cooperative, obesity grade 2 BMI 37.4 kg/m? HEENT: Atraumatic, PERRLA, EOMI, Normocephalic Oral: No Gingival or Mucosal Lesions/ Ulcerations Neck: Supple, No JVD, Negative Carotid Bruits Chest wall/Lungs: Air entry diminished in bilateral lung bases. No crepitation/rhonchi Cardiovascular: Regular rate, Regular Rhythm, Normal S1, Normal S2, No M/G/R Abdomen: Bowel Sounds Present, Soft, Non Tender, Non-Distended : No dysuria. Urine is clear. No hematuria. No renal angle tenderness. No suprapubic tenderness. Extremities: No edema, Capillary Refill Less than 3 Seconds Skin: No rashes, No breakdown Musculoskeletal: No Tenderness to Palpation of Joints or Extremities Neurological: Cranial nerves II-XII grossly intact, DTR 2+/4. No acute focal neurological deficit. Psych/Mental Status: Normal Affect, Appropriate. Weight / BMI Weight Weight: 225 lb Body Mass Index (BMI) 37.4 ABG / Lab / Microbiology Data 12/20/23 06:31 12/20/23 06:31 Laboratory: Laboratory Results - last 24 hr 12/20/23 06:31: WBC 7.6, RBC 3.83 L, Hgb 10.6 L, Hct 34.2 L, MCV 89.3, MCH 27.7, MCHC 31.0 L, RDW Std Deviation 46.2 H, RDW Coeff of Paige 14.3, Plt Count 484 H, MPV 8.8, Immature Gran % (Auto) 0.400, Neut % (Auto) 75.8 H, Lymph % (Auto) 15.3 L, [place] % (Auto) 6.8, Eos % (Auto) 1.3, Baso % (Auto) 0.4, Absolute Neuts (auto) 5.8, Absolute Lymphs (auto) 1.17, Nucleated RBC % 0, Sodium 139, Potassium 3.9, Chloride 108 H, Carbon Dioxide 26.0, Anion Gap 5, BUN 12, Creatinine 0.79, Estim Creat Clear Calc 116.60, Est GFR (MDRD) Af Amer 105, Est GFR (MDRD) Non-Af 87, BUN/Creatinine Ratio 15.1, Glucose 117 H, Calcium 8.9 Microbiology: Microbiology 12/17/23 20:00 Urine, Random Urine Culture - Final Escherichia coli D/C Instructions Discharge Diet: No restrictions Weight Bearing Status: Weight bearing as tolerated Call your doctor if you observe: Fever of 101 or Higher, Coldness, Increased Pain, Numbness or Tingling, Change in Color, Inability to urinate, Inability to have a bowel movement, Using more than 1 pad per hour, Shortness of breath, Dizziness, Fainting spells, Swelling in the ankles, Chest pain, Prolonged hiccupping, Increased palpitations (irregular heartbeat), Calf discomfort and Uncontrolled pain Please Follow Up With: Med Haile MD When: IN 2 WEEKS Meaningful Use Info Meaningful Use Diagnoses (Choose all that apply): None applicable Discharge Plan Admission Admit Date/Time: 12/17/23 22:13 Attending Provider: Haresh Farrell Primary Care Provider: Care Physician,No Primary Consulting Providers: Med Haile; Sandi Norman; Crista Oswald Discharge Orders/Prescriptions Prescriptions: New sulfamethoxazole-trimethoprim [Bactrim DS] 800-160 mg tablet 1 tab PO BID 7 Days Qty: 14 0RF Continued hydrocodone-acetaminophen 5-325 mg tablet 1 tab PO Q4H PRN PRN (Reason: pain) Referrals / Follow Up: Med Haile MD [Med Staff - Active Staff] - Within 1 Week Care Physician,No Primary [Primary Care Provider] - Disposition Disposition (needs filled in before D/C Order can be placed): Home, Self Care Charges/Coding Visit Charges Inpatient E&M: 25203 Disch Hosp >30min
== END 2023-12-20 12:50 | disposition home or self-care (01) | DRG 661 ==
LOC: ED 20:02 → MS3 12-18 07:00
PROVIDERS: Physician Assistant; Student in an Organized Health Care Education/Training Program; Urology; Admitting Provider Family Medicine; Emergency Provider Emergency Medicine; Visit Provider Internal Medicine
PROC: 0T768DZ Dilation of Right Ureter with Intraluminal Device, Via Natural or Artificial Opening Endoscopic (ICD-10-PCS; principal; 2023-12-18 07:50)
DX: N13.6 Pyonephrosis (principal); D64.9 Anemia, unspecified; E04.9 Nontoxic goiter, unspecified; E66.9 Obesity, unspecified; N12 Tubulo-interstitial nephritis, not specified as acute or chronic; N73.9 Female pelvic inflammatory disease, unspecified; N15.1 Renal and perinephric abscess; Z68.37 Body mass index [BMI] 37.0-37.9, adult
CPT/HCPCS: 36415; 74176; 76000; 80048; 80053; 81001; 83690; 84443; 85025; 87040; 87077; 87086; 87088; 87186; 94668; 99252; 99284; J7030; J7050; A4216; C1769; C2617; G0463; J2405

== ENCOUNTER → 2024-01-17 | Outpatient (CLI) | payer OTHER, SELFPAY | END | disposition home or self-care (01) | LOC: LABSPEC 16:24 | PROVIDERS: Referring Provider Urology; Visit Provider Urology | DX: R30.0 Dysuria (principal) | CPT/HCPCS: 87086 ==

== ENCOUNTER 2024-02-10 21:04 | Emergency (ER) | payer OTHER, SELFPAY ==
[2024-02-10 21:04] VITALS: BP 141/85; PULSE 76; RESP 18; TEMP 36.6; O2SAT 99; BMI 38.5
--- NOTE | 2024-02-10 22:03 | CT_ITS ---
INDICATION: Right flank pain, history kidney stone with stent removal 01/28/2024, history appendectomy and hysterectomy EXAMINATION: CT ABDOMEN AND PELVIS WITHOUT CONTRAST - CT Abdomen And Pelvis W/O Contrast Injection TECHNIQUE: Helically acquired images were obtained of the abdomen and pelvis without oral or IV contrast. A radiation dose optimization technique was used for this scan. IV Contrast dosage and agent: None. Oral contrast: None. COMPARISON: 12/17/2023 FINDINGS: LOWER CHEST: Bibasilar dependent changes. No cardiomegaly or pericardial effusion. LIVER: Homogeneous. No focal mass. GALLBLADDER AND BILIARY TREE: No calcified gallstones. No gallbladder distension or wall edema. No intra- or extrahepatic biliary ductal dilation. PANCREAS: No focal cystic or solid mass. SPLEEN: Normal size without focal cystic or solid mass. ADRENAL GLANDS: No nodules. KIDNEYS AND URETERS: Persistent abnormal appearance right kidney with perinephric stranding, nonobstructing calculus and dilatation of the collecting system. No hydroureter or calculus in the lumen of the right ureter. PERITONEUM: No ascites or free air. BOWEL: No evidence of acute appendicitis. No stomach or bowel distension. No focal inflammatory change. LYMPH NODES: No enlarged mesenteric or retroperitoneal lymph nodes. VESSELS: Aorta is non-dilated. URINARY BLADDER: Unremarkable. REPRODUCTIVE ORGANS: Uterus absent. BONES: No acute or aggressive abnormality. CT/Abdomen/Pelvis without Cont IMPRESSION: Stable abnormal right kidney with markedly dilated calyces, no right hydroureter or obstructing ureteral calculus. Infected collecting system cannot be excluded. Cause of the obstruction not demonstrated. Retrograde study may be required for further evaluation. Nonobstructing right nephrolithiasis. Electronically Signed: Mega Conti MD at 23:02 EDT ,
[2024-02-10 22:15] LABS: Absolute Lymphocyte Count 1.59 X10^3/uL (0.83-4.51); Absolute Neutrophil Count 4.9 X10^3/uL (2.0-7.7); Basophil# 0.03 X10^3/uL; Basophil% 0.4 % (0-1); Eosinophil# 0.16 X10^3/uL; Eosinophils% 2.2 % (0-5); Hematocrit 34.9 % (37-47); Hemoglobin 10.8 g/dL (12.0-15.0); Lymphocyte # 1.59 X10^3/ul (0.83-4.51); Lymphocyte % 22.3 % (19-41); Mean Corp Hgb Conc 30.9 g/dL (32-36); Mean Corpuscular Hgb 28.1 pg (27.0-32.0); Mean Corpuscular Volume 90.9 fL (81-99); Mean Platelet Vol. 9.2 fl (6.2-12.0); Monocyte# 0.41 X10^3/uL; Monocyte% 5.8 % (0-10); NRBC Flagged by Analyzer 0 % (0-5); Neutrophil # 4.91 X10^3/uL (2.7-7.7); Platelet Count 411 K/mm3 (150-450); RBC Distribution Width CV 14.4 % (11.6-14.6); RBC Distribution Width SD 48.3 fl (35.1-43.9); Red Blood Count 3.84 M/mm3 (4.2-5.4); White Blood Count 7.1 K/mm3 (4.4-11.0)
[2024-02-10] MEDS: Ondansetron 4 MG/2 ML Vial IV (22:29)
[2024-02-10] MEDS: 0.9% Normal Saline (1000mL) 1,000 ML 1000 ML IV (22:29)
[2024-02-10] MEDS: Morphine 4 MG/ML Syringe IV (22:29)
[2024-02-10 22:33] LABS: Anion Gap 4 (5-15); BUN 15 mg/dL (7-18); BUN/Creat Ratio 14.3 RATIO (10-20); Calcium,Total 8.8 mg/dL (8.5-10.1); Chloride 106 mmol/L (98-107); Creatinine, Serum 1.05 mg/dL (0.55-1.02); EST Glomerular Filtration Rate 63 mL/min (>60); Est Glom Filt Rate - Afr Amer 76 mL/min (>60); Estimated Creatinine Clearance 89.04 ml/min; Glucose 111 mg/dL (74-106); Potassium 3.5 mmol/L (3.5-5.1); Sodium Level 139 mmol/L (136-145)
[2024-02-10 22:36] LABS: Bacteria 0 SEEN /hpf (None Seen); Mucous, Urine 0 SEEN /hpf (<or=2+); Red Blood Cells-Urine 0 SEEN /hpf (0-5); White Blood Cells 0 SEEN /hpf (0-5)
[2024-02-10 22:40] LABS: Color, Urine Yellow (Yellow); Glucose, Dipstick Normal (Normal); Ketone-Dipstick Negative (Negative); Leukocyte Esterase-Dipstick Negative /ul (Negative); Nitrite-Dipstick Negative (Negative); Occult Blood-Urine Negative /ul (Negative); Protein-Dipstick Negative (Negative); Specific Gravity, Urine 1.005 (1.002-1.030); Urine Bilirubin Dipstick Negative (Negative); Urine Clarity Sl. Cloudy (Clear); Urine Urobilinogen 1 mg/dl (Normal)
[2024-02-10 22:48] LABS: Squamous Epithelial Cells - UA 0-5 SEEN /hpf (5-10)
--- NOTE | 2024-02-10 22:58 | EDS_ITS ---
HPI History of Present Illness Chief Complaint: Flank Pain Informant: patient Onset/Context/Timing Onset: Yesterday Context: Gradual Onset Timing: Continuous Quality: Aching Location: Right flank Worsened by: Deep breathing Relieved by: Nothing Narrative Narrative: Patient presents with right flank pain that began yesterday. Patient states it has gradually gotten worse. Patient states it is constant. Patient describes her pain as aching. Patient states it is worse with deep breathing. Patient states nothing makes it better. Patient states she has a history of kidney stones and had a recent ureteral stent placed and subsequently was removed. Patient denies any fevers or chills. Patient denies any nausea or vomiting. [facility] Medical History Pyelonephritis of right kidney Thyroid disease Obesity Home Medications ?Medication ?Instructions ?Recorded ?Last Taken ?Type sulfamethoxazole 800 1 tab PO BID 7 days #14 tabs 12/20/23 Unknown Rx mg-trimethoprim 160 mg tablet (Bactrim DS) hydrocodone-acetaminophen 5-325mg 1 tab PO Q6H PRN PRN pain 3 days 02/10/24 Unknown Rx 5mg-325mg #12 tabs Allergy/AdvReac Type Severity Reaction Status Date / Time ciprofloxacin (From Cipro) Allergy Intermediate Hives Verified 02/10/24 21:04 Family History (Updated 12/17/23 @ 22:[address] Sandi Norman MD) Mother No problems noted. Father No problems noted. Surgical History History of surgery on lower extremity H/O thyroidectomy Previous section Hx of appendectomy Hx of hysterectomy Social History household members: children Smoking Status: Never smoker alcohol intake: never substance use type: does not use ROS ROS ED Constitutional Constitutional ED: Denies chills or fever(s) Eyes Eyes: Denies blurry vision or change in vision ENT ENT ED: Denies rhinorrhea or sore throat Cardiovascular Cardiovascular: Denies chest pain or palpitations Respiratory/Chest Respiratory/Chest: Denies cough or dyspnea Gastrointestinal Gastrointestinal: Denies nausea or vomiting Genitourinary Genitourinary ED: Denies dysuria or hematuria Musculoskeletal Musculoskeletal: Reports back pain; Denies neck pain Integumentary Denies abscess or rash Neurologic Neurologic: Denies headache(s) or weakness Allergic/Immunologic Allergic/Immunologic ED: Denies mouth swelling or urticaria EXAM Physical Exam Const Vital Signs: 02/10/24 21:04 Temperature 98 F Temperature Source Temporal Pulse Rate 76 Respiratory Rate 18 Blood Pressure 141/85 H Blood Pressure Mean 103 Pulse Ox 99 Positive well nourished and well developed General Appearance ED: well developed and NAD HEENT Reports moist mucous membranes Neck supple and no JVD Resp normal respiratory effort and clear to auscultation bilaterally Cardio regular rate and regular rhythm GI non-tender and non-distended Palpation: soft Back/Spine General Back: CVA tenderness right Neuro oriented x3, CN's II-XII intact bilaterally and no sensory deficits noted Sensorium / Orientation: alert Motor Exam: strength 5/5 throughout Psych mental status grossly normal MDM MDM MDM Narrative Medical decision making narrative: Differential diagnosis includes pyelonephritis, ureteral calculus, musculoskeletal pain, gastroenteritis, and ovarian cyst. CT scan of the abdomen pelvis will be obtained to assess for ureteral calculus and pyelonephritis. CBC will be obtained to assess for leukocytosis and anemia. Basic metabolic profile will be obtained to assess for electrolyte abnormality and renal function. Urinalysis will be obtained to assess for urinary tract infection and hematuria. Lab Data Attestation: I reviewed the patient's lab results. Lab results narrative: CBC was reviewed. There is a mild anemia with a hemoglobin of 10.8 and hematocrit 34.9. Basic metabolic profile was reviewed and was essentially within normal limits. Urinalysis was reviewed. There is no evidence of urinary tract infection or hematuria. Labs: Laboratory Results - last 24 hr 02/10/24 02/10/24 21:35 22:30 WBC 7.1 RBC 3.84 L Hgb 10.8 L Hct 34.9 L MCV 90.9 MCH 28.1 MCHC 30.9 L RDW Std Deviation 48.3 H RDW Coeff of Paige 14.4 Plt Count 411 MPV 9.2 Immature Gran % (Auto) 0.300 Neut % (Auto) 69.0 Lymph % (Auto) 22.3 [place] % (Auto) 5.8 Eos % (Auto) 2.2 Baso % (Auto) 0.4 Absolute Neuts (auto) 4.9 Absolute Lymphs (auto) 1.59 Nucleated RBC % 0 Sodium 139 Potassium 3.5 Chloride 106 Carbon Dioxide 29.0 Anion Gap 4 L BUN 15 Creatinine 1.05 H Estim Creat Clear Calc 89.04 Est GFR (MDRD) Af Amer 76 Est GFR (MDRD) Non-Af 63 BUN/Creatinine Ratio 14.3 Glucose 111 H Calcium 8.8 Urine Color Yellow Urine Clarity Sl. Cloudy Urine pH 7.0 Ur Specific [place] 1.005 Urine Protein Negative Urine Glucose (UA) Normal Urine Ketones Negative Urine Occult Blood Negative Urine Nitrite Negative Urine Bilirubin Negative Urine Urobilinogen 1 H Ur Leukocyte Esterase Negative Urine RBC 0 SEEN Urine WBC 0 SEEN Ur Squamous Epith Cells 0-5 SEEN Urine Bacteria 0 SEEN Urine Mucus 0 SEEN Radiography Diagnostic Testing: CT scan of the abdomen pelvis was obtained. There are dilated calyces but no hydroureter or obstructing ureteral calculus. There are nonobstructing right renal calculi. There is no free air or free fluid. This was interpreted by the radiologist and was that so independently reviewed by myself. Treatment and Re-Evaluation :: Patient was advised of her findings. Patient was given a prescription for [place]. Patient was instructed to drink plenty of fluids. Patient was instructed to follow-up with her urologist in 5 to 7 days for further evaluation. Patient understood and was agreeable with the plan. All questions were answered. Discharge Plan Triage Chief Complaint: Flank Pain ED Provider: Nicholas Farfan Dx/Rx/DC Orders Clinical Impression: Hydronephrosis of right kidney, Acute right flank pain Instructions: ED Flank Pain, Uncertain Cause Prescriptions: Changed hydrocodone-acetaminophen 5-325 mg tablet 1 tab PO Q6H PRN PRN (Reason: pain) 3 Days Qty: 12 0RF No Action sulfamethoxazole-trimethoprim [Bactrim DS] 800-160 mg tablet 1 tab PO BID 7 Days Qty: 14 0RF Primary Care Provider: Care Physician,No Primary Referrals: Med Haile MD [Med Staff - Active Staff] - 3-5 Days Care Physician,No Primary [Primary Care Provider] - Print Language: [place] Disposition Disposition: Home, Self Care
[2024-02-10 23:26] VITALS: PULSE 75; RESP 14; O2SAT 99
[2024-02-10 23:27] VITALS: BP 131/66; PULSE 75; RESP 14; TEMP 36.6; O2SAT 99
== END 2024-02-10 23:33 | disposition home or self-care (01) ==
PROVIDERS: Emergency Provider Emergency Medicine; Visit Provider Emergency Medicine
DX: N13.2 Hydronephrosis with renal and ureteral calculous obstruction (principal)
CPT/HCPCS: 74176; 80048; 81001; 85025; 96361; 96374; 96375; 99282; J7030; J2405

== ENCOUNTER 2024-02-22 15:16 | Inpatient (IN) | payer OTHER, SELFPAY ==
[2024-02-22 15:17] VITALS: BP 137/82; PULSE 78; RESP 18; TEMP 36.4; O2SAT 99; BMI 37.8
[2024-02-22 16:19] LABS: Absolute Lymphocyte Count 1.41 X10^3/uL (0.83-4.51); Absolute Neutrophil Count 7.3 X10^3/uL (2.0-7.7); Basophil# 0.04 X10^3/uL; Basophil% 0.4 % (0-1); Eosinophil# 0.08 X10^3/uL; Eosinophils% 0.9 % (0-5); Hematocrit 36.5 % (37-47); Hemoglobin 11.2 g/dL (12.0-15.0); Lymphocyte # 1.41 X10^3/ul (0.83-4.51); Mean Corp Hgb Conc 30.7 g/dL (32-36); Mean Corpuscular Volume 91.3 fL (81-99); Mean Platelet Vol. 9.3 fl (6.2-12.0); Monocyte# 0.55 X10^3/uL; Monocyte% 5.9 % (0-10); NRBC Flagged by Analyzer 0 % (0-5); Neutrophil # 7.28 X10^3/uL (2.7-7.7); Neutrophil % 77.5 % (47-70); Platelet Count 474 K/mm3 (150-450); RBC Distribution Width CV 14.4 % (11.6-14.6); RBC Distribution Width SD 48.1 fl (35.1-43.9); White Blood Count 9.4 K/mm3 (4.4-11.0)
--- NOTE | 2024-02-22 16:22 | CT_ITS ---
STUDY: CT ABDOMEN AND PELVIS WITH CONTRAST REASON FOR EXAM: Female, 38 years old. flank pain RADIATION DOSAGE (If Supplied By Facility): CTDIvol = ( 16.60 ) mGy, DLP = ( 1247.27 ) mGycm TECHNIQUE: Transaxial images were obtained from the dome of the diaphragm to the symphysis pubis without oral contrast. IV 100mL Isovue-300 was administered. Sagittal and coronal images were reconstructed. Individualized dose optimization techniques were used for this CT. COMPARISON: 02/10/2024. FINDINGS: The visualized lung bases are unremarkable. The visualized portions of the heart are within normal limits. Continued markedly abnormal right kidney is diffusely enlarged, shows heterogeneous decreased enhancement, and either has moderate hydronephrosis, or possibly more likely focal loculated abscesses. In addition there is high density subcapsular fluid collection also suggestive of perinephric abscess. Hemorrhage is not excluded but less likely. Stable 7 mm right renal pelvic stone. Stable right hydroureter down to the bladder without definite obstructing stone. Normal left kidney. Normal liver. The gallbladder is contracted. Normal spleen. Normal pancreas. Normal bilateral adrenal glands. Evaluation of the GI tract is limited by absence of oral contrast. Cannot exclude stomach wall thickening. No dilated loops of bowel or evidence for obstruction. Cannot exclude segmental thickening of the allred of the small or large bowel. Cannot exclude enteritis or colitis. Appendix not adequately seen. Normal abdominal aorta. Normal inferior vena cava. Normal retroperitoneum. Normal urinary bladder. There is absence of the uterus consistent with a prior hysterectomy. Normal abdominal wall. Normal osseous structures. CT/Abdomen/Pelvis W IV Cont ONLY IMPRESSION: Continued markedly abnormal right kidney strongly suspicious for inflammatory process including possibly multiple renal abscesses and subcapsular abscess or fluid. Cannot exclude xanthogranulomatous pyelonephritis although typically this is seen in older patients with staghorn calculi. Correlate clinically and consider image guided diagnostic aspiration. Electronically Signed: Lenin Orozco MD at 16:56 EDT ,
[2024-02-22 16:46] LABS: Anion Gap 3 (5-15); BUN 10 mg/dL (7-18); BUN/Creat Ratio 13.5 RATIO (10-20); Calcium,Total 9.3 mg/dL (8.5-10.1); Chloride 107 mmol/L (98-107); Creatinine, Serum 0.74 mg/dL (0.55-1.02); EST Glomerular Filtration Rate 94 mL/min (>60); Est Glom Filt Rate - Afr Amer 114 mL/min (>60); Estimated Creatinine Clearance 125.23 ml/min; Glucose 117 mg/dL (74-106); Potassium 3.5 mmol/L (3.5-5.1); Sodium Level 138 mmol/L (136-145)
--- NOTE | 2024-02-22 16:55 | ED.VIS.FEGU ---
HPI HPI - Female History of Present Illness Chief Complaint: Flank Pain Narrative Narrative: 38-year-old female presenting with right flank pain which is chronic issue. She states not severe right now. She states he saw Dr. Haile today who was looking at her CT images and sent her back in for a CT abdomen pelvis IV contrast as he was concerned and that she might have a mass of her kidney. Patient had a urinalysis today in office which Dr. Haile result was negative. She denies fevers, chills. She denies nausea, vomiting. PFSH PFS Medical History (Updated 02/22/24 @ 20:39 by Rosa Cornejo) Depression Anxiety Back pain due to injury Kidney stones Pyelonephritis of right kidney Thyroid disease Obesity Home Medications ?Medication ?Instructions ?Recorded ?Last Taken ?Type hydrocodone-acetaminophen 5-325mg 1 tab PO Q6H PRN PRN pain 3 days 02/10/24 Unknown Rx 5mg-325mg #12 tabs Allergy/AdvReac Type Severity Reaction Status Date / Time ciprofloxacin (From Cipro) Allergy Intermediate Hives Verified 02/22/24 15:18 Family History Mother No problems noted. Father No problems noted. Surgical History History of surgery on lower extremity H/O thyroidectomy Previous section Hx of appendectomy Hx of hysterectomy Social History household members: children Smoking Status: Never smoker alcohol intake: never substance use type: does not use ROS ROS ED Constitutional Constitutional ED: Denies chills, fever(s) or sweats Eyes Eyes: Denies blurry vision or change in vision ENT ENT ED: Denies ear pain or sore throat Cardiovascular Cardiovascular: Denies chest pain, palpitations or racing heartbeat Respiratory/Chest Respiratory/Chest: Denies cough, dyspnea or sputum Gastrointestinal Gastrointestinal: Reports abdominal pain; Denies constipation, diarrhea, nausea or vomiting Genitourinary Genitourinary ED: Denies dysuria, hematuria or urinary frequency Musculoskeletal Musculoskeletal: Denies arthralgias, myalgias or neck pain Integumentary Denies abscess, Abrasions or rash Neurologic Neurologic: Denies headache(s), paresthesias or weakness Psychiatric Psychiatric: Denies anxiety, depression, suicidal ideation or suicidal thoughts Endocrine Endocrinology: Denies polydipsia or polyuria EXAM Physical Exam Const Vital Signs: 02/22/24 15:17 02/22/24 17:17 02/22/24 19:00 Temperature 97.6 F L Temperature Source Temporal Pulse Rate 78 78 71 Respiratory Rate 18 16 16 Blood Pressure 137/82 H 126/79 H 127/88 H Blood Pressure Mean 100 94 101 Pulse Ox 99 98 99 Oxygen Delivery Method Room Air Room Air Room Air Positive well nourished General Appearance ED: NAD HEENT Reports moist mucous membranes Eyes PERRL and EOMs intact bilaterally Chest Wall inspection of chest normal Resp normal respiratory effort and clear to auscultation bilaterally Cardio regular rate and regular rhythm GI Negative for normal to inspection, nondistended, normoactive bowel sounds Back/Spine General Back: CVA tenderness right Neuro oriented x3 and CN's II-XII intact bilaterally Sensorium / Orientation: alert Psych mental status grossly normal Skin no rashes or lesions noted MDM MDM MDM Narrative Medical decision making narrative: Patient presenting with right flank pain. Differential includes UTI, pyelonephritis, renal mass. Patient states she does not have any pain currently. CBC obtained to assess white blood cell count, hemoglobin, platelets. BMP to assess renal function, electrolytes, glucose. Patient refused to give urinalysis but states that she had a normal 1 today in office with Dr. Haile. CBC shows normal white blood cell count at 9.4. Hemoglobin 11.5. Platelets are high at 474. Renal function and electrolytes within normal limits. CT of the abdomen pelvis will be obtained with IV contrast. CT of the abdomen pelvis with IV contrast shows concern for infection and possibly abscess. I discussed this with Dr. Haile who recommended admitting the patient and he will order an IR drain of this. Patient amenable to staying. She was given a dose of IV Rocephin per urology. Admitted in stable condition. Impression: 1. Renal abscess Lab Data Attestation: I reviewed the patient's lab results. Labs: Laboratory Results - last 24 hr 02/22/24 15:55 WBC 9.4 RBC 4.00 L Hgb 11.2 L Hct 36.5 L MCV 91.3 MCH 28.0 MCHC 30.7 L RDW Std Deviation 48.1 H RDW Coeff of Paige 14.4 Plt Count 474 H MPV 9.3 Immature Gran % (Auto) 0.300 Neut % (Auto) 77.5 H Lymph % (Auto) 15.0 L [place] % (Auto) 5.9 Eos % (Auto) 0.9 Baso % (Auto) 0.4 Absolute Neuts (auto) 7.3 Absolute Lymphs (auto) 1.41 Nucleated RBC % 0 Sodium 138 Potassium 3.5 Chloride 107 Carbon Dioxide 28.0 Anion Gap 3 L BUN 10 Creatinine 0.74 Estim Creat Clear Calc 125.23 Est GFR (MDRD) Af Amer 114 Est GFR (MDRD) Non-Af 94 BUN/Creatinine Ratio 13.5 Glucose 117 H Calcium 9.3 Radiography Diagnostic Testing: Clinical Impression(s) from Imaging Studies Abdomen/Pelvis CT 02/22/24 16:22 IMPRESSION: Continued markedly abnormal right kidney strongly suspicious for inflammatory process including possibly multiple renal abscesses and subcapsular abscess or fluid. Cannot exclude xanthogranulomatous pyelonephritis although typically this is seen in older patients with staghorn calculi. Correlate clinically and consider image guided diagnostic aspiration. Electronically Signed: Lenin Orozco MD at 16:56 EDT , Discharge Plan Disposition Disposition: Acute Care Hospital [facility] Discharge Date/Time: 02/22/24 20:10
[2024-02-22 17:17] VITALS: BP 126/79; PULSE 78; RESP 16; O2SAT 98
[2024-02-22 19:00] VITALS: BP 127/88; PULSE 71; RESP 16; O2SAT 99
[2024-02-22] MEDS: Ceftriaxone 1 GM/50 ML BAG IV (19:32)
[2024-02-22 20:05] VITALS: BP 125/65; PULSE 75; RESP 18; TEMP 36.8; O2SAT 98
[2024-02-22 20:31] VITALS: BMI 37.6
[2024-02-22 20:44] VITALS: BP 125/77; PULSE 71; RESP 16; TEMP 36.4; O2SAT 100
[2024-02-22] MEDS: 0.9% Saline Lock 10 ML Syringe IV (22:04)
[2024-02-22] MEDS: 0.9% Normal Saline (1000mL) 1,000 ML 50 ML IV (22:05)
[2024-02-23] VITALS (12 sets, daily range): BP systolic 106–146; BP diastolic 60–88; PULSE 71–88; RESP 16–18; TEMP 36.1–36.7; O2SAT 93–100; BMI 37.6
[2024-02-23 07:06] LABS: Absolute Neutrophil Count 6.3 X10^3/uL (2.0-7.7); Basophil# 0.04 X10^3/uL; Basophil% 0.5 % (0-1); Eosinophil# 0.08 X10^3/uL; Hematocrit 36.9 % (37-47); Hemoglobin 11.2 g/dL (12.0-15.0); Lymphocyte % 14.5 % (19-41); Mean Corp Hgb Conc 30.4 g/dL (32-36); Mean Corpuscular Hgb 27.7 pg (27.0-32.0); Mean Corpuscular Volume 91.1 fL (81-99); Mean Platelet Vol. 9.6 fl (6.2-12.0); Monocyte# 0.57 X10^3/uL; Monocyte% 6.9 % (0-10); NRBC Flagged by Analyzer 0 % (0-5); Neutrophil # 6.34 X10^3/uL (2.7-7.7); Neutrophil % 76.7 % (47-70); Platelet Count 451 K/mm3 (150-450); RBC Distribution Width CV 14.4 % (11.6-14.6); RBC Distribution Width SD 48.1 fl (35.1-43.9); Red Blood Count 4.05 M/mm3 (4.2-5.4); White Blood Count 8.3 K/mm3 (4.4-11.0)
--- NOTE | 2024-02-23 07:12 | PCM.HP.STD ---
HPI - General General Date of Admission: 02/22/24 Date of Service: 02/23/24 HPI Narrative FRANNY REID, is a 38 F who presents back in my office with right flank pain we repeated the CAT scan and it shows again that she appears to have a stone in the middle the kidney causing blockage to her middle calyx and lower pole calyx when I did ureteroscopy as an outpatient I did not see the stones I thought I passed but she came back with pain again and it looks like the stone may be overgrown with tissue may have grown into the kidney and is not visible secondary to take her back to surgery today perform ureteroscopy again do a retrograde pyelogram and do my best to try to identify where the stone is and see if we can laser the stone out but is causing blockage of the midpole and lower pole calyx. Fortunately it does not look like she has a mass or tumor or anything like that as suggested by the CAT scan but she does look like she has segmental obstruction of the lower pole and midpole calyx from the stone and the stone may be grown into the kidney explained this to the patient she understands and PLAN to proceed with surgery later today. [facility] Medical History (Updated 02/22/24 @ 20:39 by Rosa Cornejo) Depression Anxiety Back pain due to injury Kidney stones Pyelonephritis of right kidney Thyroid disease Obesity Home Medications ?Medication ?Instructions ?Recorded ?Last Taken ?Type hydrocodone-acetaminophen 5-325mg 1 tab PO Q6H PRN PRN pain 3 days 02/10/24 Unknown Rx 5mg-325mg #12 tabs Allergy/AdvReac Type Severity Reaction Status Date / Time ciprofloxacin (From Cipro) Allergy Intermediate Hives Verified 02/22/24 15:18 Family History Mother No problems noted. Father No problems noted. Surgical History History of surgery on lower extremity H/O thyroidectomy Previous section Hx of appendectomy Hx of hysterectomy Social History household members: children Smoking Status: Never smoker alcohol intake: never substance use type: does not use Vital Signs Vital Signs Vital Signs: 02/22/24 15:17 02/22/24 17:17 02/22/24 19:00 Temperature 97.6 F L Temperature Source Temporal Pulse Rate 78 78 71 Respiratory Rate 18 16 16 Respiratory Effort Respiratory Depth Respiratory Pattern Blood Pressure 137/82 H 126/79 H 127/88 H Blood Pressure Mean 100 94 101 Blood Pressure Source Blood Pressure Position Blood Pressure Location Pulse Ox 99 98 99 Oxygen Delivery Method Room Air Room Air Room Air 02/22/24 20:05 02/22/24 20:44 02/22/24 22:10 Temperature 98.2 F 97.6 F L Temperature Source Temporal Pulse Rate 75 71 Respiratory Rate 18 16 Respiratory Effort Normal Respiratory Depth Normal Respiratory Pattern Normal Blood Pressure 125/65 H 125/77 H Blood Pressure Mean 85 93 Blood Pressure Source Monitor Blood Pressure Position Semi-Fowlers Blood Pressure Location Left Arm Pulse Ox 98 100 Oxygen Delivery Method Room Air Room Air 02/23/24 05:42 Temperature 97.8 F Temperature Source Oral Pulse Rate 84 Respiratory Rate 16 Respiratory Effort Respiratory Depth Respiratory Pattern Blood Pressure 106/64 Blood Pressure Mean 78 Blood Pressure Source Monitor Blood Pressure Position Semi-Fowlers Blood Pressure Location Left Arm Pulse Ox 98 Oxygen Delivery Method Room Air Weight Weight: 102.557 kg Body Mass Index (BMI) 37.6 Results Lab / Micro Data 02/22/24 15:55 02/22/24 15:55 Labs: Laboratory Results - last 24 hr 02/22/24 15:55: WBC 9.4, RBC 4.00 L, Hgb 11.2 L, Hct 36.5 L, MCV 91.3, MCH 28.0, MCHC 30.7 L, RDW Std Deviation 48.1 H, RDW Coeff of Paige 14.4, Plt Count 474 H, MPV 9.3, Immature Gran % (Auto) 0.300, Neut % (Auto) 77.5 H, Lymph % (Auto) 15.0 L, [place] % (Auto) 5.9, Eos % (Auto) 0.9, Baso % (Auto) 0.4, Absolute Neuts (auto) 7.3, Absolute Lymphs (auto) 1.41, Nucleated RBC % 0, Sodium 138, Potassium 3.5, Chloride 107, Carbon Dioxide 28.0, Anion Gap 3 L, BUN 10, Creatinine 0.74, Estim Creat Clear Calc 125.23, Est GFR (MDRD) Af Amer 114, Est GFR (MDRD) Non-Af 94, BUN/Creatinine Ratio 13.5, Glucose 117 H, Calcium 9.3 Imaging Radiology Impression Abdomen/Pelvis CT 02/22/24 16:22 IMPRESSION: Continued markedly abnormal right kidney strongly suspicious for inflammatory process including possibly multiple renal abscesses and subcapsular abscess or fluid. Cannot exclude xanthogranulomatous pyelonephritis although typically this is seen in older patients with staghorn calculi. Correlate clinically and consider image guided diagnostic aspiration. Electronically Signed: Lenin Orozco MD at 16:56 EDT ,
[2024-02-23 07:18] LABS: International Normalized Ratio 1.1; Prothrombin Time (Protime)PT. 14.1 SECONDS (11.7-14.9)
[2024-02-23 07:32] LABS: Anion Gap 5 (5-15); BUN 9 mg/dL (7-18); BUN/Creat Ratio 13.5 RATIO (10-20); Calcium,Total 8.6 mg/dL (8.5-10.1); Chloride 109 mmol/L (98-107); Creatinine, Serum 0.67 mg/dL (0.55-1.02); EST Glomerular Filtration Rate 106 mL/min (>60); Est Glom Filt Rate - Afr Amer 128 mL/min (>60); Estimated Creatinine Clearance 137.85 ml/min; Glucose 110 mg/dL (74-106); Potassium 3.6 mmol/L (3.5-5.1); Sodium Level 139 mmol/L (136-145)
--- NOTE | 2024-02-23 09:52 | PCM.PRE.AN2 ---
Assessment & Plan Anesthesia* Anesthesia Assessment Anesthesia Assessment: Discussed sedation and/or anesthesia options, risks, benefits, and alternatives with patient/parents/legal guardian. Questions invited. The patient/parents/legal guardian/POA seems to understand and agrees to proceed with anesthesia plan. Reviewed the physical assessment, medical history, allergy history and patient home medications list prior to surgery/procedure/anesthetic and documented any changes. Performed airway and anesthesia risk assessments. 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 When Was Last Pacemaker Check QUESTION #4 FULL TEXT: You/Your Family Experience fever (hyperthermia) with Anesthesia Last Oral Intake Last Oral intake: Last Oral Intake NPO since Meds taken in AM with sips of water? 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 - educational technology coordinator: PONV - educational technology coordinator Female HX of Motion Sickness HX of N/V After Surgery Non-Smoker Duration of Surgery greater than 60 minutes Number of Risk Factors PONV Score Height & Weight Height & Weight: Anesthesia: Height & Weight Height 1.65 m 02/22/24 20:31 Weight: 102.557 kg 02/22/24 20:31 Body Mass Index (BMI) 37.6 02/22/24 20:31 Respiratory Assessment Respiratory Assessment - educational technology coordinator: Respiratory Tract Infection Hx - educational technology coordinator Hx Respiratory Tract Infection No 02/22/24 20:50 STOP Sleep Apnea STOP Sleep Apnea - educational technology coordinator: STOP Sleep Apnea - educational technology coordinator Hx Hypertension No 02/22/24 20:31 Hx Sleep Apnea No 02/22/24 20:31 CPAP BIPAP Do you snore loudly (louder No 02/22/24 20:31 than talking or can be heard Do you often feel tired/ No 02/22/24 20:31 fatigued/ sleepy during daytime? Has anyone observed you stop No 02/22/24 20:31 breathing during sleep? STOP Results Negative 02/22/24 20:31 QUESTION #5 FULL TEXT : Do you snore loudly (louder than talking or can be heard through closed doors)? 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 Specify any problems Hx of Preganancy in last 3 N/A 02/22/24 20:31 Months Nurse Filling Out Transfusion TMELLOR 02/22/24 20:31 & Questions: Date: 02/22/24 02/22/24 20:31 Time: 20:32 02/22/24 20:31 Patient unable to answer at this time (ie. confused, unrespo /Reproduction History /Reproductive History - educational technology coordinator: /Reproductive Hx- educational technology coordinator Hx Now No: HYSTER 02/22/24 20:50 Gestational Age (in weeks): EDC: Hx Hx Para Hx Section SAB No 02/22/24 20:31 Active Medications Active Medications: Current Medications Generic Name Dose Route Start Last Admin Trade Name Freq PRN Reason Stop Dose Admin Acetaminophen 500 mg 02/22/24 20:51 Acetaminophen 500 Mg Tablet PO Q4H PRN PRN Pain 1-10 or Fever Sodium Chloride 250 mls @ 15 mls/hr 02/22/24 20:34 IV .[id number] PRN Saline Flush Sodium Chloride 1,000 mls @ 50 mls/hr 02/22/24 20:55 02/22/24 22:05 IV 50 mls/hr .Q20H TRINIDAD Administration Ceftriaxone Sodium 1 gm in 50 mls @ 100 mls/hr 02/23/24 10:00 Rocephin IV Q12 TRINIDAD Oxycodone HCl 5 mg 02/22/24 20:51 Oxycodone 5 Mg Tablet PO Q4H PRN PRN Pain Score 6-10 Sodium Chloride 10 - 40 ml 02/22/24 20:34 02/22/24 22:04 0.9% Saline Lock 10 Ml Syringe IV 10 ml UD PRN Administration SALINE FLUSH Anesthesia Focused Assessment* Temperature: 97.8 F Pulse Rate: 84 Blood Pressure: 106/64 Respiratory Rate: 16 Pulse Ox: 98 Focused Labs Anesthesia Preop lab: CBC WBC 8.3 K/mm3 (4.4-11.0) 02/23/24 06:16 RBC 4.05 M/mm3 (4.2-5.4) L 02/23/24 06:16 Hgb 11.2 g/dL (12.0-15.0) L 02/23/24 06:16 Hct 36.9 % (37-47) L 02/23/24 06:16 Plt Count 451 K/mm3 (150-450) H 02/23/24 06:16 CHEMISTRY Potassium 3.6 mmol/L (3.5-5.1) 02/23/24 06:16 Sodium 139 mmol/L (136-145) 02/23/24 06:16 BUN 9 mg/dL (7-18) 02/23/24 06:16 Creatinine 0.67 mg/dL (0.55-1.02) 02/23/24 06:16 Glucose 110 mg/dL (74-106) H 02/23/24 06:16 TSH 3.19 uIU/mL (0.358-3.74) 12/18/23 05:20 COAG PT 14.1 SECONDS (11.7-14.9) 02/23/24 06:16 Review of Systems (Anesthesia) ROS Narrative System reviewed and no additional complaints, except as documented. [facility] Medical History Depression Anxiety Back pain due to injury Kidney stones Pyelonephritis of right kidney Thyroid disease Obesity Home Medications ?Medication ?Instructions ?Recorded ?Last Taken ?Type hydrocodone-acetaminophen 5-325mg 1 tab PO Q6H PRN PRN pain 3 days 02/10/24 Unknown Rx 5mg-325mg #12 tabs Allergy/AdvReac Type Severity Reaction Status Date / Time ciprofloxacin (From Cipro) Allergy Intermediate Hives Verified 02/22/24 15:18 Family History Mother No problems noted. Father No problems noted. Surgical History History of surgery on lower extremity H/O thyroidectomy Previous section Hx of appendectomy Hx of hysterectomy Social History household members: children Smoking Status: Never smoker alcohol intake: never substance use type: does not use
[2024-02-23] MEDS: Ceftriaxone 1 GM/50 ML BAG IV ×2 (10:29→21:36)
--- NOTE | 2024-02-23 12:52 | CASEMGMT ---
SCHUYLER DUFFY Assessment Face to Face with patient for initial transition planning/care coordination assessment. SCHUYLER CM introduced self and role at [facility], pt voices understanding. Pt is A&Ox4 and is resting comfortably in bed and is calm. Care providers, pharmacy, and demographics verified. Admitting dx: Renal Abscess PCP: Perri Arizmendi Specialists: Denies Preferred Pharmacy: [facility] Insurance: [employer] Prescription Benefit: Yes LNOK: Sammi Callaway (Mother) Living Arrangements: Pt lives with her daughter and 2 cousins in a single story home with 2 steps to enter ADLs/IADLs: Ind Transportation: Self, pt mother DME: Pt states that she has home O2 through [employer]. Pt states that she is supposed to wear 2L @ HS. E-Mail sent to [employer] to verify current Rx. Pt states that she has an oxygen concentrator and portability. Pt states that she does not have a pulse ox and was then educated about purchasing options. Pt denies further DME uses or needs. HHC/SNF: Denies history or needs Pt?s goal: Home no needs Plan: [employer] is 24. Pt denies home going needs and states that she feels safe DC home once medically ready. CM to follow for safe DC from [facility]. Elzbieta Guevara RN, CM
--- NOTE | 2024-02-23 14:43 | PCM.PRE.AN2 ---
ASA Classification* ASA Classification ASA Classification: 2 and E Assessment & Plan Anesthesia* Anesthesia Assessment Anesthesia Assessment: Discussed sedation and/or anesthesia options, risks, benefits, and alternatives with patient/parents/legal guardian/POA. Questions invited. The patient/parents/legal guardian/POA seems to understand and agrees to proceed with anesthesia plan. Reviewed the physical assessment, medical history, allergy history and patient home medications list prior to surgery/procedure/anesthetic and documented any changes. Performed airway and anesthesia risk assessments. 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 When Was Last Pacemaker Check QUESTION #4 FULL TEXT: You/Your Family Experience fever (hyperthermia) with Anesthesia Last Oral Intake Last Oral intake: Last Oral Intake NPO since 23:55 02/23/24 13:41 Meds taken in AM with sips of water? 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 Female HX of Motion Sickness HX of N/V After Surgery Non-Smoker Duration of Surgery greater than 60 minutes Number of Risk Factors PONV Score Height & Weight Height & Weight: Anesthesia: Height & Weight Height 1.65 m 02/23/24 13:41 Weight: 102.557 kg 02/23/24 13:41 Body Mass Index (BMI) 37.6 02/23/24 13:41 Respiratory Assessment Respiratory Assessment - rope making machine operator: Respiratory Tract Infection Hx - rope making machine operator Hx Respiratory Tract Infection No 02/22/24 20:50 STOP Sleep Apnea STOP Sleep Apnea - rope making machine operator: STOP Sleep Apnea - rope making machine operator Hx Hypertension No 02/22/24 20:31 Hx Sleep Apnea No 02/22/24 20:31 CPAP BIPAP Do you snore loudly (louder No 02/22/24 20:31 than talking or can be heard Do you often feel tired/ No 02/22/24 20:31 fatigued/ sleepy during daytime? Has anyone observed you stop No 02/22/24 20:31 breathing during sleep? STOP Results Negative 02/22/24 20:31 QUESTION #5 FULL TEXT : Do you snore loudly (louder than talking or can be heard through closed doors)? 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 Specify any problems Hx of Preganancy in last 3 N/A 02/22/24 20:31 Months Nurse Filling Out Transfusion TMELLOR 02/22/24 20:31 & Questions: Date: 02/22/24 02/22/24 20:31 Time: 20:32 02/22/24 20:31 Patient unable to answer at this time (ie. confused, unrespo /Reproduction History /Reproductive History - rope making machine operator: /Reproductive Hx- rope making machine operator Hx Now No: HYSTER 02/22/24 20:50 Gestational Age (in weeks): EDC: Hx Hx Para Hx Section SAB No 02/22/24 20:31 Active Medications Active Medications: Current Medications Generic Name Dose Route Start Last Admin Trade Name Freq PRN Reason Stop Dose Admin Acetaminophen 500 mg 02/22/24 20:51 Acetaminophen 500 Mg Tablet PO Q4H PRN PRN Pain 1-10 or Fever Sodium Chloride 250 mls @ 15 mls/hr 02/22/24 20:34 IV .[id number] PRN Saline Flush Sodium Chloride 1,000 mls @ 50 mls/hr 02/22/24 20:55 02/22/24 22:05 IV 50 mls/hr .Q20H TRINIDAD Administration Ceftriaxone Sodium 1 gm in 50 mls @ 100 mls/hr 02/23/24 10:00 02/23/24 10:29 Rocephin IV 100 mls/hr Q12 TRINIDAD Administration Lactated Ringer's 1,000 mls @ 15 mls/hr 02/23/24 14:45 IV .Q48H TRINIDAD Oxycodone HCl 5 mg 02/22/24 20:51 Oxycodone 5 Mg Tablet PO Q4H PRN PRN Pain Score 6-10 Sodium Chloride 10 - 40 ml 02/22/24 20:34 02/22/24 22:04 0.9% Saline Lock 10 Ml Syringe IV 10 ml UD PRN Administration SALINE FLUSH Anesthesia Focused Assessment* Temperature: 98.0 F Pulse Rate: 77 Blood Pressure: 144/77 Respiratory Rate: 18 Pulse Ox: 100 Airway Assessment Mouth opens (cm): 3 Mallampati Score: II Focused Labs Anesthesia Preop lab: CBC WBC 8.3 K/mm3 (4.4-11.0) 02/23/24 06:16 RBC 4.05 M/mm3 (4.2-5.4) L 02/23/24 06:16 Hgb 11.2 g/dL (12.0-15.0) L 02/23/24 06:16 Hct 36.9 % (37-47) L 02/23/24 06:16 Plt Count 451 K/mm3 (150-450) H 02/23/24 06:16 CHEMISTRY Potassium 3.6 mmol/L (3.5-5.1) 02/23/24 06:16 Sodium 139 mmol/L (136-145) 02/23/24 06:16 BUN 9 mg/dL (7-18) 02/23/24 06:16 Creatinine 0.67 mg/dL (0.55-1.02) 02/23/24 06:16 Glucose 110 mg/dL (74-106) H 02/23/24 06:16 TSH 3.19 uIU/mL (0.358-3.74) 12/18/23 05:20 COAG PT 14.1 SECONDS (11.7-14.9) 06/12/24 06:16 Review of Systems (Anesthesia) ROS Narrative System reviewed and no additional complaints, except as documented. [facility] Medical History Depression Anxiety Back pain due to injury Kidney stones Pyelonephritis of right kidney Thyroid disease Obesity Home Medications ?Medication ?Instructions ?Recorded ?Last Taken ?Type hydrocodone-acetaminophen 5-325mg 1 tab PO Q6H PRN PRN pain 3 days 02/10/24 Unknown Rx 5mg-325mg #12 tabs Allergy/AdvReac Type Severity Reaction Status Date / Time ciprofloxacin (From Cipro) Allergy Intermediate Hives Verified 02/22/24 15:18 Family History Mother No problems noted. Father No problems noted. Surgical History History of surgery on lower extremity H/O thyroidectomy Previous section Hx of appendectomy Hx of hysterectomy Social History household members: children Smoking Status: Never smoker alcohol intake: never substance use type: does not use
[2024-02-23] MEDS: Lactated Ringers 1,000 ML 15 ML IV (15:01)
--- NOTE | 2024-02-23 16:32 | DCINST_ITS ---
Discharge Instructions Diet Discharge Diet: No restrictions Activity Discharge Activity: Return to Normal Activity and May Not Drive (while taking narcotic pain medications.) Dressing / Incision Call your doctor if you observe: Fever of 101 or Higher Follow Up Care Please Follow Up With: Med Haile MD When: Call [phone] for an appointment Test Results: Test results from this visit will be discussed in further detail at your follow- up appointment, if applicable. Discharge Plan Admission Admit Date/Time: 02/23/24 07:15 Primary Reason for Your Visit: kidney stone Attending Provider: Med Haile Primary Care Provider: Perri Arizmendi Discharge Orders/Prescriptions Prescriptions: No Action hydrocodone-acetaminophen 5-325 mg tablet 1 tab PO Q6H PRN PRN (Reason: pain) 3 Days Qty: 12 0RF Referrals / Follow Up: Med Haile MD [Med Staff - Active Staff] - Perri Arizmendi MD [Primary Care Provider] - [facility] Doctor,Out of [Non-Staff] -
--- NOTE | 2024-02-23 16:33 | PCM.PRE.AN2 ---
ASA Classification* ASA Classification ASA Classification: 3 and E Assessment & Plan Anesthesia* Anesthesia Assessment Anesthesia Assessment: Discussed sedation and/or anesthesia options, risks, benefits, and alternatives with patient/parents/legal guardian/POA. Questions invited. The patient/parents/legal guardian/POA seems to understand and agrees to proceed with anesthesia plan. Reviewed the physical assessment, medical history, allergy history and patient home medications list prior to surgery/procedure/anesthetic and documented any changes. Performed airway and anesthesia risk assessments. 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 When Was Last Pacemaker Check QUESTION #4 FULL TEXT: You/Your Family Experience fever (hyperthermia) with Anesthesia Last Oral Intake Last Oral intake: Last Oral Intake NPO since 23:55 02/23/24 13:41 Meds taken in AM with sips of water? 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 Has anyone observed you stop No 02/22/24 20:31 breathing during sleep? STOP Results Negative 02/22/24 20:31 QUESTION #5 FULL TEXT : Do you snore loudly (louder than talking or can be heard through closed doors)? 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 Specify any problems Hx of Preganancy in last 3 N/A 02/22/24 20:31 Months Nurse Filling Out Transfusion TMELLOR 02/22/24 20:31 & Questions: Date: 02/22/24 02/22/24 20:31 Time: 20:32 02/22/24 20:31 Patient unable to answer at this time (ie. 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: /Reproductive Hx- tire recapping machine operator Hx Now No: HYSTER 02/22/24 20:50 Gestational Age (in weeks): EDC: Hx Hx Para Hx Section SAB No 02/22/24 20:31 Active Medications Active Medications: Current Medications Generic Name Dose Route Start Last Admin Trade Name Freq PRN Reason Stop Dose Admin Acetaminophen 500 mg 02/22/24 20:51 Acetaminophen 500 Mg Tablet PO Q4H PRN PRN Pain 1-10 or Fever Sodium Chloride 250 mls @ 15 mls/hr 02/22/24 20:34 IV .[id number] PRN Saline Flush Sodium Chloride 1,000 mls @ 50 mls/hr 02/22/24 20:55 02/22/24 22:05 IV 50 mls/hr .Q20H TRINIDAD Administration Ceftriaxone Sodium 1 gm in 50 mls @ 100 mls/hr 02/23/24 10:00 02/23/24 10:29 Rocephin IV 100 mls/hr Q12 TRINIDAD Administration Lactated Ringer's 1,000 mls @ 15 mls/hr 02/23/24 14:45 02/23/24 15:01 IV 15 mls/hr .Q48H TRINIDAD Administration Oxycodone HCl 5 mg 02/22/24 20:51 Oxycodone 5 Mg Tablet PO Q4H PRN PRN Pain Score 6-10 Sodium Chloride 10 - 40 ml 02/22/24 20:34 02/22/24 22:04 0.9% Saline Lock 10 Ml Syringe IV 10 ml UD PRN Administration SALINE FLUSH Anesthesia Focused Assessment* Temperature: 98.0 F Pulse Rate: 77 Blood Pressure: 144/77 Respiratory Rate: 18 Pulse Ox: 100 Focused Labs Anesthesia Preop lab: CBC WBC 8.3 K/mm3 (4.4-11.0) 02/23/24 06:16 RBC 4.05 M/mm3 (4.2-5.4) L 02/23/24 06:16 Hgb 11.2 g/dL (12.0-15.0) L 02/23/24 06:16 Hct 36.9 % (37-47) L 02/23/24 06:16 Plt Count 451 K/mm3 (150-450) H 02/23/24 06:16 CHEMISTRY Potassium 3.6 mmol/L (3.5-5.1) 02/23/24 06:16 Sodium 139 mmol/L (136-145) 02/23/24 06:16 BUN 9 mg/dL (7-18) 02/23/24 06:16 Creatinine 0.67 mg/dL (0.55-1.02) 02/23/24 06:16 Glucose 110 mg/dL (74-106) H 02/23/24 06:16 TSH 3.19 uIU/mL (0.358-3.74) 12/18/23 05:20 COAG PT 14.1 SECONDS (11.7-14.9) 02/23/24 06:16 Review of Systems (Anesthesia) ROS Narrative System reviewed and no additional complaints, except as documented. [facility] Medical History Depression Anxiety Back pain due to injury Kidney stones Pyelonephritis of right kidney Thyroid disease Obesity Home Medications ?Medication ?Instructions ?Recorded ?Last Taken ?Type hydrocodone-acetaminophen 5-325mg 1 tab PO Q6H PRN PRN pain 3 days 02/10/24 Unknown Rx 5mg-325mg #12 tabs Allergy/AdvReac Type Severity Reaction Status Date / Time ciprofloxacin (From Cipro) Allergy Intermediate Hives Verified 02/22/24 15:18 Family History Mother No problems noted. Father No problems noted. Surgical History History of surgery on lower extremity H/O thyroidectomy Previous section Hx of appendectomy Hx of hysterectomy Social History household members: children Smoking Status: Never smoker alcohol intake: never substance use type: does not use
--- NOTE | 2024-02-23 17:21 | OP.PCM_ITS ---
Report of Operation Date of Procedure: 02/23/24 Pre-Operative Diagnosis: Abnormal right kidney with dilated calyces possible st one Post-Operative Diagnosis: The same Surgery/Procedure Performed:: Cystoscopy retrograde pyelogram, right ureteroscopy laser of stone, no stent Description of Surgical Findings:: Indication 38-year-old female she presented to the hospital for second time with a possible stone in the mid part of her right kidney on CT scan he can see a calcification within the mid kidney and then there is a lot of dilated with looks like the dilated calyces from obstruction or this could be just cystic mass very difficult to tell I took her to surgery and did ureteroscopy and I personally saw an area that looks very suspicious of possibly impacted stone in the wall but as I lasered it I did not see a stone at all. I reviewed the CAT scan she is got these multiple cystic areas that look like they might be connected to the stone but it is also possible that the sort of some weird cystic structure. I was not able to get into it I attempted to but there was no connection between the collecting system and the cystic structure seen on CT scan she also had like a low bit of fluid around her kidney on the CAT scan I did a cystoscopy, that was is normal I would balloon dilated the right ureter and then went up with the ureteroscope I tend to the area and to laser an area that looked like the stone but I was not really successful so at the end I decided to stop. Will keep overnight for observation I think okay to transfer her as an outpatient to urologist up in [place] for second opinion regarding the situation not exactly sure for what she has in her right kidney let the patient know the findings. Surgeon: Med Haile Type of Anesthesia: General Drains: none Estimated Blood Loss (mL): none Admit VTE Documentation VTE Present on Admission: No VTE Mechan Device Prophylaxis: SCD's VTE Pharm Prophylaxis ordered?: No
--- NOTE | 2024-02-23 17:34 | PCM.POST.ANE ---
Anesthesia: Postop Eval I Current Vital Signs Temperature: 97.7 F Pulse Rate: 83 Blood Pressure: 123/81 Respiratory Rate: 16 Pulse Ox: 97 Oxygen Delivery Method: Room Air Assessment Airway patent: Yes Spontaneous unlabored respirations: Yes Mental status: Awake nausea: No Vomiting: No Anesthesia Complication: No Fluid Hydration Crystalloid volume administer (ml): 800 Total IV fluid infused: 800 Progress Note Anesthesia document: Postop Eval 1 completed: Yes
[2024-02-23] MEDS: Acetaminophen 500 MG Tablet PO (19:28)
[2024-02-23] MEDS: oxyCODONE 5 MG Tablet PO (19:29)
[2024-02-23] MEDS: 0.9% Normal Saline (1000mL) 1,000 ML 50 ML IV (19:30)
[2024-02-24 00:05] VITALS: BP 125/76; PULSE 77; RESP 16; TEMP 37.1; O2SAT 95
[2024-02-24 04:53] VITALS: BP 101/63; PULSE 70; RESP 16; TEMP 36.9; O2SAT 94
[2024-02-24] MEDS: oxyCODONE 5 MG Tablet PO (06:45)
[2024-02-24] MEDS: Acetaminophen 500 MG Tablet PO (06:45)
--- NOTE | 2024-02-24 07:32 | DS.PCM_ITS ---
Providers Date of Admission: 02/23/24 Primary Care Physician: Dr. Perri Arizmendi MD Reason For Visit: RENAL ABSCESS Diagnosis Discharge Diagnosis (1) Kidney stones: Status: Acute Code(s): N20.0 - Calculus of kidney Medications at Discharge Home Medications hydrocodone-acetaminophen 5-325mg 5mg-325mg 1 tab PO Q6H PRN PRN pain 3 days #12 tabs 02/10/24 sulfamethoxazole 800 mg-trimethoprim 160 mg tablet (Bactrim DS) 1 tab PO BID #10 tabs 02/24/24 Hospital Course Operations - Physical Exam Const alert and oriented x3 General Appearance: cooperative HEENT normocephalic, head/scalp atraumatic, EAC's normal and TM's normal bilaterally Eyes PERRL and EOMs intact bilaterally Pupil: sluggish Neck no lymphadenopathy, supple and no JVD General: trachea midline Lymph Lymphatic: no lymphadenopathy noted, lymphedema and lymphadenopathy Resp normal respiratory effort, normal air movement and clear to auscultation bilaterally Cardio regular rate, regular rhythm and peripheral pulses 2+ throughout GI soft to palpation, non-tender and non-distended Extremity normal capillary refill and no clubbing, cyanosis or edema General Extremity: no tenderness to palpation of joints or extremities Skin no rashes or lesions noted General Skin Exam: turgor normal Lesions: no lesions Rashes: no rashes Neuro CN's II-XII intact bilaterally Speech: speech normal Motor Exam: strength 5/5 throughout; Negative for general weakness Psych thought process normal, cooperative and affect normal Appearance: appropriate Weight / BMI Weight Weight: 102.557 kg Body Mass Index (BMI) 37.6 ABG / Lab / Microbiology Data 02/23/24 06:16 02/23/24 06:16 Laboratory: Laboratory Results - last 24 hr 02/23/24 06:16: Sodium 139, Potassium 3.6, Chloride 109 H, Carbon Dioxide 25.0, Anion Gap 5, BUN 9, Creatinine 0.67, Estim Creat Clear Calc 137.85, Est GFR (MDRD) Af Amer 128, Est GFR (MDRD) Non-Af 106, BUN/Creatinine Ratio 13.5, G lucose 110 H, Calcium 8.6 D/C Instructions Discharge Diet: No restrictions Call your doctor if you observe: Fever of 101 or Higher Please Follow Up With: Med Haile MD When: Call [phone] for an appointment Meaningful Use Info Meaningful Use Meaningful Use Diagnoses (Choose all that apply): None applicable Ischemic Stroke Statin Dosing Therapy Reference: STATIN DOSE THERAPY REFERENCE: * Patients > 75 years receive moderate or high dose statin therapy. * Patients 75 years or YOUNGER should receive HIGH intensity statin dose unless contraindicated. You will be required to document reason for non-treatment if statin daily dose does not meet guidelines. HIGH DOSE STATIN THERAPY DAILY Atorvastatin > than or = to 40 mg Rosuvastatin > than or = to 20 mg Amlodipine + Atorvastatin > than or = to 2.5/40 mg Ezetimibe + Simvastatin 10/80 mg Simvastatin 80mg Discharge Plan Admission Admit Date/Time: 02/23/24 07:15 Primary Reason for Your Visit: kidney stone Attending Provider: Med Haile Primary Care Provider: Perri Arizmendi Discharge Orders/Prescriptions Prescriptions: New sulfamethoxazole-trimethoprim [Bactrim DS] 800-160 mg tablet 1 tab PO BID Qty: 10 0RF No Action hydrocodone-acetaminophen 5-325 mg tablet 1 tab PO Q6H PRN PRN (Reason: pain) 3 Days Qty: 12 0RF Referrals / Follow Up: Med Haile MD [Med Staff - Active Staff] - Perri Arizmendi MD [Primary Care Provider] - [facility] Doctor,Out of [Non-Staff] - Disposition Disposition (needs filled in before D/C Order can be placed): Home, Self Care
[2024-02-24 07:54] VITALS: BP 114/76; PULSE 63; RESP 18; TEMP 36.4; O2SAT 98
--- NOTE | 2024-02-24 07:55 | PCM.POSTANE2 ---
Anesthesia Postop Eval I Sum Postop Eval Completion status Anesthesia document: Postop Eval 1 completed: Yes Anesthesia Postop Eval I Summary Anesthesia Postop Eval I Summary: Anesthesia Postop Eval I: Assessment Summary Airway patent Yes 02/23/24 17:45 [email or web address] Spontaneous unlabored Yes 02/23/24 17:45 [email or web address] respirations Mental status Awake 02/23/24 17:45 [email or web address] nausea No 02/23/24 17:45 [email or web address] Vomiting No 02/23/24 17:45 [email or web address] Anesthesia Postop Eval I: Fluid Summary Crystalloid volume administer 800 02/23/24 17:45 [email or web address] (ml) Colloids volume administered ( ml) Blood Product volume administered (ml) Total IV fluid infused 800 02/23/24 17:45 [email or web address] Anesthesia Postop Eval I: Summary Notes Anesthesia Complication No 02/23/24 17:45 [email or web address] Anesthesia Complication Comment: Post-operative progress note Anesthesia: Postop Eval II Evaluation Mental status: Awake Pain Level: 0 nausea: No Vomiting: No Progress Note Post-operative progress note: incease HR 140, inc. temp, discussed with DR Haile, will admit to TCU, HR dec 105, after 25 demoral fo shievers Complications Anesthesia Complication: No
[2024-02-24] MEDS: Ceftriaxone 1 GM/50 ML BAG IV (08:01)
--- NOTE | 2024-02-24 09:41 | PHA.DC.MC.R ---
Pharmacy [facility] has performed discharge medication reconciliation and counseling for this patient. The patient's discharge medication list was reviewed for discrepancies and discrepancies were resolved. The patient was counseled on the following discharge medications and changes in medications for homegoing were reviewed. 1. BACTRIM The Reason for Use, instructions for use, and potential side effects were reviewed for all new medications. The patient's questions regarding all of their medications were answered. The patient was able to verbally demonstrate an understanding of their discharge medications. Medications at Discharge Home Medications hydrocodone-acetaminophen 5-325mg 5mg-325mg 1 tab PO Q6H PRN PRN pain 3 days #12 tabs 02/10/24 sulfamethoxazole 800 mg-trimethoprim 160 mg tablet (Bactrim DS) 1 tab PO BID #10 tabs 02/24/24
--- NOTE | 2024-02-24 10:15 | CASEMGMT ---
Received notification from [employer] that pt is not showing up in their system. RN CM into pt room, pt lying in bed in no distress on RA. Pt reports she does indeed use [employer] for her oxygen. Pt denies any homegoing needs at this time and is ready for dc.
== END 2024-02-24 11:36 | disposition home or self-care (01) | DRG 694 ==
LOC: ED 17:08 → MS3 02-23 07:09
PROVIDERS: Admitting Provider Urology; Emergency Provider Student in an Organized Health Care Education/Training Program; Visit Provider Urology
PROC: 0TJ98ZZ Inspection of Ureter, Via Natural or Artificial Opening Endoscopic (ICD-10-PCS; CPT 52352; principal; 2024-02-23 15:25)
DX: N20.0 Calculus of kidney (principal); Z87.442 Personal history of urinary calculi
CPT/HCPCS: 36415; 74177; 76000; 80048; 85025; 85610; 85730; 99284; J7030; J7050; J7120; Q9967; A4216; C1726; C1769; J2405

== ENCOUNTER → 2024-03-14 | Outpatient (CLI) | payer OTHER, SELFPAY ==
--- NOTE | 2024-03-14 14:04 | MRI_ITS ---
EXAM: MR ABDOMEN WITHOUT AND WITH INTRAVENOUS CONTRAST CLINICAL INDICATION: NEOPLASM OF UNCERTAIN BEHAVIOR TECHNIQUE: Multiplanar and multisequence MR images of the abdomen without and with intravenous contrast. CONTRAST: IV 20ML CLARISCAN COMPARISON: CT abdomen 02/22/2024, CT abdomen 02/10/2024 FINDINGS: LOWER THORAX: Normal. No pleural effusion. LIVER: 3.7 cm rounded area of contrast enhancement within hepatic segment 6 suggestive of hemangioma. GALLBLADDER AND BILE DUCTS: Normal. No gallstones. No gallbladder distention or wall edema. No intra- or extrahepatic biliary ductal dilation. PANCREAS: Normal. No focal cystic or solid mass. SPLEEN: Normal. Normal size without focal cystic or solid mass. ADRENALS: Normal. No nodules. KIDNEYS AND URETERS: The nonenhancing fluid collections within the right kidney again noted measuring up to 4 cm in maximum diameter associated with right perinephric edema and distortion of the adjacent renal cortex. Appearance is consistent with multiple hygienic abscesses. Xanthogranulomatous pyelonephritis to be excluded. Left kidney is normal in appearance. Normal renal size and position. INTRAPERITONEAL SPACE: Normal. No ascites or other fluid collection. No free air. VASCULATURE: Normal. Abdominal aorta is non-dilated. LYMPH NODES: No enlarged lymph nodes. MRI/MRI Abd WITH and W/O Contrast IMPRESSION: Persistent areas of abscess formation/necrosis of the right kidney which may represent multiple renal abscesses or xanthogranulomatous pyelonephritis. Electronically Signed: Nathaniel Grace MD at 16:29 EDT ,
== END | disposition home or self-care (01) ==
LOC: MRI 13:51
PROVIDERS: Referring Provider Urology; Visit Provider Urology
DX: D41.01 Neoplasm of uncertain behavior of right kidney (principal)
CPT/HCPCS: 74183; A9575; A4216

== ENCOUNTER 2024-04-29 01:42 | Emergency (ER) | payer OTHER, SELFPAY ==
[2024-04-29 01:43] VITALS: BP 128/83; PULSE 88; RESP 16; TEMP 36.9; O2SAT 98; BMI 38.9
[2024-04-29 02:47] VITALS: BP 133/90; PULSE 88; RESP 16; TEMP 37.1; O2SAT 97
--- NOTE | 2024-04-29 03:13 | EX.ED.DYSGE1 ---
HPI History of Present Illness Chief Complaint: Wound Informant: patient Onset/Context/Timing Onset: Today Context: Sudden Onset Timing: Continuous Quality: Dark bleeding Location: Anterior neck Worsened by: Nothing Relieved by: Nothing Narrative Narrative: Patient presents with postoperative bleeding that began today. Patient states it began rather suddenly. Patient states it is dark blood. Patient has had a recent thyroid surgery at a hospital in [place]. Patient states she was staying with her mother here in [place] and presented to the emergency department here. Patient states she did not contact her surgeon. Patient states she tried to contact her surgeon earlier in the day but he did not return her call. Patient denies any fevers or chills. Patient denies any difficulty breathing or difficulty swallowing. Patient denies any purulent discharge or drainage. PFSH PFSH Medical History Depression Anxiety Back pain due to injury Kidney stones Pyelonephritis of right kidney Thyroid disease Obesity Home Medications ?Medication ?Instructions ?Recorded ?Last Taken ?Type ibuprofen 200 mg tablet (Addaprin) 400 mg PO Q8H PRN fever or pain 04/29/24 Unknown History Allergy/AdvReac Type Severity Reaction Status Date / Time ciprofloxacin (From Cipro) Allergy Intermediate Hives Verified 04/29/24 01:44 Family History Mother No problems noted. Father No problems noted. Surgical History H/O total thyroidectomy (~04/25/24) History of surgery on lower extremity H/O thyroidectomy Previous section Hx of appendectomy Hx of hysterectomy Social History household members: children Smoking Status: Never smoker alcohol intake: never substance use type: does not use ROS ROS ED Constitutional Constitutional ED: Denies chills or fever(s) Eyes Eyes: Denies blurry vision or change in vision ENT ENT ED: Denies rhinorrhea or sore throat Cardiovascular Cardiovascular: Denies chest pain or palpitations Respiratory/Chest Respiratory/Chest: Denies cough or dyspnea Gastrointestinal Gastrointestinal: Denies nausea or vomiting Genitourinary Genitourinary ED: Denies dysuria or hematuria Musculoskeletal Musculoskeletal: Denies back pain or neck pain Integumentary Denies abscess or rash Neurologic Neurologic: Denies headache(s) or weakness Allergic/Immunologic Allergic/Immunologic ED: Denies mouth swelling or urticaria EXAM Physical Exam Const Vital Signs: 04/29/24 01:43 04/29/24 02:47 04/29/24 03:43 Temperature 98.4 F 98.7 F Temperature Source Temporal Oral Pulse Rate 88 88 66 Respiratory Rate 16 16 16 Blood Pressure 128/83 H 133/90 H 132/70 H Blood Pressure Mean 98 104 90 Pulse Ox 98 97 99 Oxygen Delivery Method Room Air Room Air Room Air Positive well nourished and well developed General Appearance ED: well developed and NAD HEENT Reports moist mucous membranes HEENT Narrative: Small, 7 mm open area with mild gapping of the wound alignment no active bleeding noted. There is some swelling around the incision. There is no erythema or warmth. There is no fluctuance or induration. There are no signs of any infection Neck supple and no JVD Neuro oriented x3, CN's II-XII intact bilaterally and no sensory deficits noted Sensorium / Orientation: alert Motor Exam: strength 5/5 throughout Psych mental status grossly normal MDM MDM MDM Narrative Medical decision making narrative: The open area of the incision was cleaned with chlorhexidine. The incision was closed with Dermabond skin adhesive. Patient tolerated the procedure well. Patient was instructed to follow-up with her surgeon as scheduled. Patient was instructed to contact her surgeon with any questions. Patient was instructed to return to the emergency department if worse in any way. Patient understood and was agreeable with the plan. All questions were answered. Procedures Lacerations Neck wound dehiscence: Length: 0.7 cm Depth: Sub Q Shape: Linear Prep: Sterile Conditions and Chlorhexadine Laceration repair: Dermabond and Wound explored Discharge Plan Triage Chief Complaint: Wound ED Provider: Nicholas Farfan Dx/Rx/DC Orders Clinical Impression: Postoperative bleeding from incision, Body mass index (BMI) of 30.0 to 39.9 Instructions: ED Post Op Wound Check, Bleeding, ED Laceration, Skin Adhesive Prescriptions: No Action ibuprofen [Addaprin] 200 mg tablet 400 mg PO Q8H PRN (Reason: fever or pain) Primary Care Provider: Perri Arizmendi Referrals: Perri Arizmendi MD [Primary Care Provider] - 5-7 Days Print Language: Azerbaijani Disposition Disposition: Home, Self Care
[2024-04-29 03:43] VITALS: BP 132/70; PULSE 66; RESP 16; TEMP 36.7; O2SAT 99
== END 2024-04-29 03:59 | disposition home or self-care (01) ==
LOC: ED 03:31
PROVIDERS: Emergency Provider Emergency Medicine; Visit Provider Emergency Medicine
DX: E89.810 Postprocedural hemorrhage of an endocrine system organ or structure following an endocrine system procedure (principal); Z90.49 Acquired absence of other specified parts of digestive tract; Z90.710 Acquired absence of both cervix and uterus
CPT/HCPCS: 12001; 99283

== ENCOUNTER → 2024-05-09 | Outpatient (CLI) | payer OTHER, SELFPAY ==
[2024-05-10 16:10] LABS: Thyroglobulin Antibody < 1.0 IU/mL (0.0-0.9); Thyroglobulin, Serum Qt. 0.2 ng/mL (1.5-38.5); Thyroid Peroxidase AB < 9 IU/mL (0-34)
== END | disposition home or self-care (01) ==
LOC: LAB 10:59
PROVIDERS: Referring Provider Internal Medicine Endocrinology, Diabetes & Metabolism; Visit Provider Internal Medicine Endocrinology, Diabetes & Metabolism
DX: C73 Malignant neoplasm of thyroid gland (principal); E89.0 Postprocedural hypothyroidism
CPT/HCPCS: 36415; 84432; 84443; 86376; 86800